=== PATIENT | male | born 1955 | race Caucasian/White ===

== ENCOUNTER → 2018-03-14 17:05 | Outpatient (CLI) | payer OTHER, SELFPAY ==
--- NOTE | 2018-03-14 17:09 | DI.CT.S_ITS ---
PROCEDURE: CT CHEST WO CON INDICATIONS: SOLITARY PULMONARY NODULE TECHNIQUE: Noncontrast 5 mm thick sections acquired from the pulmonary apices to the posterior costophrenic angles. 7 mm thick coronal and sagittal MIP reformats were then acquired. For radiation dose reduction, the following was used: automated exposure control, adjustment of mA and/or kV according to patient size. COMPARISON: [facility], CT, THORAX WITHOUT CONTRAST, 02/07/2016, 18:42. [facility], CT, THORAX WITHOUT CONTRAST, 01/05/2015, 11:11. FINDINGS: Image quality: Excellent. Lungs and pleura: A 3 mm subpleural nodule is again seen within the left upper lobe, as on series 2 image 95. On series 3 images 83, there is a 3 mm subpleural nodule seen within the right lower lobe laterally. These nodules are stable compared to the prior CT examinations. No new pulmonary nodules are seen. No pneumothorax or pleural effusions are seen. The central airways are patent. Mediastinum: Heart size is normal. Coronary artery calcifications are seen. No pericardial effusion. No mediastinal adenopathy by size criteria. Thoracic aorta and central pulmonary arteries are normal in size. Esophagus is normal in caliber. No hiatal hernia. Bones and chest wall: Postoperative change of the left humeral head is seen. No suspicious bony lesions. No vertebral body compression fractures. No axillary or supraclavicular adenopathy by size criteria. Thyroid gland demonstrates no significant noncontrast abnormality. Abdomen: Visualized upper abdominal solid organs and bowel loops appear normal in the absence of contrast. IMPRESSION: Stable 3 mm pulmonary nodules. Given the stability compared to 2014, these are regarded to be benign. No further imaging workup is recommended. Incidental note is made of: Coronary artery calcification Dictated by: Pillo Noel M.D. on 03/14/2018 at 16:31 Approved by: Pillo Noel M.D. on 03/14/2018 at 16:36
== END ==
PROVIDERS: Family Provider Physician Assistant; PCP Physician Assistant; Visit Provider Physician Assistant
DX: R91.8 Other nonspecific abnormal finding of lung field (principal); I25.10 Atherosclerotic heart disease of native coronary artery without angina pectoris
CPT/HCPCS: 71250

== ENCOUNTER → 2018-04-15 09:09 | Outpatient (CLI) | payer OTHER, SELFPAY ==
[2018-04-15 10:37] LABS: Alanine Aminotransferase 48 IU/L (21-72); Albumin 4.1 g/dL (3.5-5.0); Albumin Globulin Ratio 1.4 (1.0-2.8); Alkaline Phosphatase 82 U/L (38-126); Aspartate Aminotransferase 27 IU/L (17-59); BUN Creatinine Ratio 17.3 (6-22); Bilirubin Total 0.9 mg/dL (0.2-1.3); Blood Urea Nitrogen 19 mg/dL (9-20); Calcium 9.4 mg/dL (8.4-10.2); Carbon Dioxide 32 mmol/L (22-32); Chloride 100 mmol/L (98-107); Cholesterol 133 mg/dL (140-199); Estimated Glomerular Filt Rate > 60.0 mL/min (>60); Globulin 2.9 g/dL (1.7-4.1); Glucose 92 mg/dL (80-110); HDL Cholesterol 40 mg/dL (40-60); HEMOLYSIS < 15 (0-50); LDL Cholesterol Calculated 61 mg/dL (<100); Potassium 4.8 mmol/L (3.4-5.1); Sodium 140 mmol/L (137-145); Triglycerides 160 mg/dL (35-150)
[2018-04-15 11:02] LABS: Prostate Specific Antigen Scrn 0.775 ng/mL (0.1-4.0)
[2018-04-15 11:11] LABS: Creatinine Urine Random 130.2 mg/dL
[2018-04-15 11:42] LABS: Microalbumi Creatinin Ratio Ur 4.6 ug/mg CR (<30); Microalbumin Urine Random < 0.6 mg/dL (0-1.6)
== END ==
PROVIDERS: PCP Physician Assistant; Visit Provider Physician Assistant
DX: E78.2 Mixed hyperlipidemia (principal); Z95.5 Presence of coronary angioplasty implant and graft; Z12.5 Encounter for screening for malignant neoplasm of prostate
CPT/HCPCS: 36415; 80053; 80061; 82043; 82570; G0103

== ENCOUNTER → 2018-04-18 15:24 | Outpatient (CLI) | payer OTHER, SELFPAY ==
--- NOTE | 2018-04-18 15:25 | DI.MRI.S_ITS ---
PROCEDURE: MR LUMBAR SPINE WO CON INDICATIONS: Low back pn - persistant groin pn pn w/erection TECHNIQUE: Noncontrast sagittal T1 spin echo and T2 fast echo, sagittal STIR, axial T1 and T2 fast spin echo through the lumbar spine. In cases with scoliosis, additional coronal T2 fast spin echo may be performed. COMPARISON: [facility], CR, L-SPINE 2-3 VIEWS, 11/02/2017, 10:47. [facility], MR, L-SPINE WITHOUT CONTRAST, 06/26/2011, 20:16. FINDINGS: Image quality: Excellent. Alignment and Curvature: 5 lumbar type vertebral bodies are present by plain film. There is normal bony alignment. Bone Marrow: Marrow is of normal overall signal. No acute vertebral body compression fractures. Left hemilaminotomy. Moderate reactive signal within the endplates adjacent to the L5-S1 intervertebral disc, which is increased. T11 and L1 hemangiomata are present, as before. Spinal Cord: Conus medullaris terminates at the mid L2 level. Visualized cord demonstrates normal signal and size. Paraspinous Soft Tissues: No paravertebral masses. L1-L2: Normal appearance. L2-L3: Mild facet hypertrophy. No significant canal, nor foraminal stenosis. No change. L3-L4: Normal appearance. L4-L5: New mild disc desiccation and mild diffuse disc bulge. Increased mild facet hypertrophy bilaterally. Epidural lipomatosis. Increased, dcvh-my-jkldaevy canal stenosis, and increased, mild foraminal stenosis bilaterally. L5-S1: Increased disc height loss and desiccation. Mild diffuse disc bulge. Previously seen superimposed left paracentral protrusion is no longer present. Bilateral facet hypertrophy. No significant canal stenosis. Increased, moderate foraminal stenosis bilaterally. Resolved left S1 nerve impingement. IMPRESSION: 1. Postsurgical sequelae L5-S1, with associated resolution of left S1 nerve impingement. Increased bilateral L5-S1 foraminal stenosis secondary to disc and facet disease. 2. Increased, iihr-bj-anaypbwj canal stenosis, and increased, mild bilateral foraminal stenosis L4-L5 secondary to disc and facet disease. Dictated by: Rhea Baires M.D. on 04/18/2018 at 16:28 Approved by: Rhea Baires M.D. on 04/18/2018 at 16:34
== END ==
PROVIDERS: Family Provider Physician Assistant; PCP Physician Assistant; Visit Provider Physician Assistant
DX: M48.07 Spinal stenosis, lumbosacral region (principal); M48.061 Spinal stenosis, lumbar region without neurogenic claudication; N48.30 Priapism, unspecified; M54.5 Low back pain; R10.30 Lower abdominal pain, unspecified; N50.819 Testicular pain, unspecified
CPT/HCPCS: 72148

== ENCOUNTER → 2018-07-14 16:10 | Outpatient (CLI) | payer OTHER, SELFPAY ==
[2018-07-14 17:57] LABS: Add Manual Diff / Slide Review NO; Basophils Percent Auto 0.8 % (0-2); Eosinophils Percent Auto 6.7 % (2-4); Hematocrit 43.5 % (41-53); Hemoglobin 15.5 g/dL (13.5-17.5); Lymphocytes Percent Auto 22.4 % (25-40); Mean Corpuscular HGB Conc 35.6 % (30-36); Mean Corpuscular Hemoglobin 31.1 PG (26-34); Mean Corpuscular Volume 87.4 fL (80-100); Monocytes Percent Auto 11.4 % (3-14); Neutrophils Absolute Auto 3800 /uL (3000-5900); Neutrophils Percent Auto 58.7 % (50-75); Platelet Count 188 X10^3/uL (150-400); Red Blood Cell Count 4.98 X10^6/uL (4.5-5.9); Red Cell Distribution Width 13.4 % (11.6-14.8); White Blood Cell Count 6.4 X10^3/uL (4.5-11.0)
[2018-07-14 18:08] LABS: INR 1.1 (0.9-1.3); Prothrombin Time 11.9 SECONDS (10.1-12.7)
[2018-07-14 18:11] LABS: PTT Partial Thromboplastin Tim 33 SECONDS (26.4-36.2)
[2018-07-14 18:16] LABS: Blood Urea Nitrogen 16 mg/dL (9-20); Calcium 9.5 mg/dL (8.4-10.2); Carbon Dioxide 28 mmol/L (22-32); Chloride 103 mmol/L (98-107); Estimated Glomerular Filt Rate > 60.0 mL/min (>60); Glucose 81 mg/dL (80-110); HEMOLYSIS < 15 (0-50); Potassium 4.1 mmol/L (3.4-5.1); Sodium 141 mmol/L (137-145)
[2018-07-15 20:14] LABS: Prostate Specific Antigen 0.718 ng/mL (0.10-4.00)
== END ==
PROVIDERS: Family Provider Physician Assistant; PCP Physician Assistant; Visit Provider Orthopaedic Surgery Orthopaedic Surgery of the Spine
DX: R97.20 Elevated prostate specific antigen [PSA] (principal)
CPT/HCPCS: 36415; 80048; 84153; 85025; 85610; 85730; 93005

== ENCOUNTER 2018-08-13 11:36 | Inpatient (IN) | payer OTHER, SELFPAY ==
[2018-07-30 14:03] VITALS: BMI 33.5
[2018-08-13] VITALS (17 sets, daily range): BP systolic 90–142; BP diastolic 48–81; PULSE 75–96; RESP 10–18; TEMP 36.4–36.9; O2SAT 90–98; BMI 32.4
--- NOTE | 2018-08-13 | DI.RAD.S_ITS ---
PROCEDURE: XR LUMBAR SPINE 2-3V INDICATIONS: L5-S1 LAMINECTOMY TECHNIQUE: 2 intraoperative fluoroscopic views of the lumbar spine were acquired. COMPARISON: [facility], , -SPINE 2-3 VIEWS, 11/02/2017, 10:47. FINDINGS: Bones: 2 intraoperative views demonstrate posterior fixation and discectomy at L5-S1. IMPRESSION: Intraoperative fluoroscopic views of posterior fixation and discectomy at L5-S1. Dictated by: Jessica Guajardo M.D. on 08/13/2018 at 16:03 Approved by: Jessica Guajardo M.D. on 08/13/2018 at 16:03
--- NOTE | 2018-08-13 12:28 | PM.PREOP ---
Pre-operative Note Interval Note Pre-op Check: Yes History & Physical Reviewed by Physician, Yes Exam Performed and Yes History & Physical exam performed today by Physician Changes: No
[2018-08-13 12:29] LABS: INR 1.1 (0.9-1.3); Prothrombin Time 12.2 SECONDS (10.1-12.7)
[2018-08-13] MEDS: LACTATED RINGERS 1,000 ML 42 ML IV ×3 (12:29→16:37)
--- NOTE | 2018-08-13 12:53 | SUR.OPER ---
Prone on spine table, head in foam head support, padded chest and pelvic supports, gel pad at knees, lower legs supported by pillows; nipples, genitalia and toes free of pressure, arms secured on foam padded arm boards at <90 degrees abduction. Tape over blanket at thigh secured to table.
[2018-08-13] MEDS: CEFAZOLIN 2 GM/100 ML FROZ.PIGGY IV ×2 (13:17→20:27)
[2018-08-13] MEDS: BUPIVACAINE 0.25% W/ EPI VIAL 30 ML INJ (13:58)
[2018-08-13] MEDS: BUPIVACAINE LIPOSOME 266 MG/20 ML VIAL INJ (13:58)
[2018-08-13] MEDS: ACETAMINOPHEN IV 1,000 MG/100 ML VIAL 400 MG IV (15:00)
--- NOTE | 2018-08-13 15:42 | PM.OP.1 ---
Operative Date/Time/Diagnoses Date of procedure: 08/13/18 Time of procedure: 13:03 Pre-op diagnosis: 1. L4-5, L5-S1 spinal stenosis 2. Post L5-S1 laminectomy with epidural scarring and radiculopathy 3. L4-5, L5-S1 spondylosis with radiculopathy Post-op diagnosis: same Procedure & Clinicians Procedure: 1. L5-S1 Postero-lateral and posterior interbody fusion 2. L5-S1 interbody cage placement. 3. L5-S1 decompressive laminectomy with bilateral facetecomies 4. L5-S1 Posterior non-segmental instrumentation 5. L4-5 hemilaminectomy 6. [place] of bone marrow from iliac crest 7. Utilization of microsurgical technique and operating microscope Same procedure as scheduled: Yes Indications: Patient has been having chronic back pain and worsening lumbar radiculopathy. Patient had previous lumbar decompression without significant improvement in his pain level. Patient has progressively worsening back pain and leg pain. Patient failed multiple conservative management with worsening pain weakness and numbness in her lower extremity. Patient has been having difficulty performing activity of daily living. After discussing risks benefits of treatment options, patient elected proceed with surgery. Surgeon: Lottie Land Radiation Technician: Azalia Delgado Click Yes if Unassisted: No Anesthesia Type: General Operative Notes Closure Type: primary Specimen(s): none sent Implants & Drains: Globus revolve screws, Rise cages Estimated Blood Loss (mL): 50 Blood products transfused: none Procedure in detail: Patient was seen in the preoperative area. Risks and benefits of the surgery was discussed with the patient. Informed consent was obtained from the patient and placed in the chart. Surgical site was marked. Patient was taken to the operative room. General anesthesia was administered. Prophylactic antibiotic was given to the patient less than 30 min before the incision was made. Patient was placed into a prone position on the Chadwick table. Patient's back was then prepped and draped in the sterile fashion. Time-out was performed at this time. Using AP and lateral C-arm imaging the interval between L4-5 L5-S1 was identified and marked on patient's back. A 2 inch incision 2 in from midline was made on the right side first. The fascia was incised in line with skin incision. Globus MARS retractors was placed inside the incision and docked onto the L5 lamina. Using microsurgical technique and operating microscope, a L5 laminectomy and L5-S1 facetectomy was performed using a Kerrison rongeur. The disc space at L5-S1 was identified. And a total diskectomy was performed at L5-S1 level. The endplates were decorticated using a rasp and shaver. The total diskectomy and decortication was performed at L5-S1 level in order to to accomplish a L5-S1 fusion. The local bone from the laminectomy and facetectomy was saved for local bone grafting. After the total diskectomy and decortication was completed, Globus viacell bone graft material was combined with local bone that was harvested earlier. At this time, a separate skin is incision was made over the iliac crest. A Jamshidi needle was inserted into the iliac crest through a separate skin incision. 5 cc of bone marrow aspiration was obtained through the separate skin incision using a Jamshidi needle from the iliac crest. The bone marrow aspiration was combined with local bone and the via cell bone grafting material. The bone grafting material was placed into the L5-S1 interbody space along with a expandable cage. The cage was expanded to its maximum height using the torque limiting screwdriver. At this time the MARS retractor was redirected over the L4 lamina. Using microsurgical technique and operating microscope, a L4-5 heminectomy was performed using the Kerrison rongeur. The ligamentum flavum was also resected at the side of the hemilaminectomy for further decompression of the epidural space. At this time a mirror image incision was made on the left side. The fascia was incised in line with the skin incision. Globus MARS retractor was inserted and docked onto the L5-S1 posterolateral gutter. Using the power drill, posterior-lateral decortication was performed at L5-S1 level until bleeding cortical bone was identified. The remaining bone grafting material was placed into the L5-S1 posterior lateral gutter he order to accomplish posterolateral fusion at the L5-S1 level. Using the double C-arm technique, pedicle screws were placed into the L5 and S1 pedicles bilaterally. This was done by placing the Jamshidi needle into the pedicles, then placing the guidewires over the Jamshidi needle, and finally placing the cannulated screws over the guidewires bilaterally. After the pedicle screws were placed, 2 titanium rods was locked into the heads of the pedicle screws using locking caps and torque limiting screwdriver. After all the hardware was placed, and confirmed with AP and lateral C-arm imaging, the wound was then irrigated with sterile normal saline and packed with Ray-Perla gauze for 3 min to accomplish hemostasis. After the gauze was removed the deep fascia was closed with #1 Vicryl suture. The subcutaneous layer was closed with 2-0 Vicryl. The skin was closed with skin cristina. Patient tolerated the procedure well. There were no complications.
--- NOTE | 2018-08-13 15:48 | P.OP_ITS ---
Operative Date/Time/Diagnoses Date of procedure: 08/13/18 Time of procedure: 13:03 Pre-op diagnosis: 1. L4-5, L5-S1 spinal stenosis 2. Post L5-S1 laminectomy with epidural scarring and radiculopathy 3. L4-5, L5-S1 spondylosis with radiculopathy Post-op diagnosis: same Procedure & Clinicians Procedure: 1. L5-S1 Postero-lateral and posterior interbody fusion 2. L5-S1 interbody cage placement. 3. L5-S1 decompressive laminectomy with bilateral facetecomies 4. L5-S1 Posterior non-segmental instrumentation 5. L4-5 hemilaminectomy 6. [place] of bone marrow from iliac crest 7. Utilization of microsurgical technique and operating microscope Same procedure as scheduled: Yes Indications: Patient has been having chronic back pain and worsening lumbar radiculopathy. Patient had previous lumbar decompression without significant improvement in his pain level. Patient has progressively worsening back pain and leg pain. Patient failed multiple conservative management with worsening pain weakness and numbness in her lower extremity. Patient has been having difficulty performing activity of daily living. After discussing risks benefits of treatment options, patient elected proceed with surgery. Surgeon: Lottie Land Production Inspector: Azalia Delgado Click Yes if Unassisted: No Anesthesia Type: General Operative Notes Closure Type: primary Specimen(s): none sent Implants & Drains: Globus revolve screws, Rise cages Estimated Blood Loss (mL): 50 Blood products transfused: none Procedure in detail: Patient was seen in the preoperative area. Risks and benefits of the surgery was discussed with the patient. Informed consent was obtained from the patient and placed in the chart. Surgical site was marked. Patient was taken to the operative room. General anesthesia was administered. Prophylactic antibiotic was given to the patient less than 30 min before the incision was made. Patient was placed into a prone position on the Chadwick table. Patient's back was then prepped and draped in the sterile fashion. Time- out was performed at this time. Using AP and lateral C-arm imaging the interval between L4-5 L5-S1 was identified and marked on patient's back. A 2 inch incision 2 in from midline was made on the right side first. The fascia was incised in line with skin incision. Globus MARS retractors was placed inside the incision and docked onto the L5 lamina. Using microsurgical technique and operating microscope, a L5 laminectomy and L5-S1 facetectomy was performed using a Kerrison rongeur. The disc space at L5-S1 was identified. And a total diskectomy was performed at L5- S1 level. The endplates were decorticated using a rasp and shaver. The total diskectomy and decortication was performed at L5-S1 level in order to to accomplish a L5-S1 fusion. The local bone from the laminectomy and facetectomy was saved for local bone grafting. After the total diskectomy and decortication was completed, Globus viacell bone graft material was combined with local bone that was harvested earlier. At this time, a separate skin is incision was made over the iliac crest. A Jamshidi needle was inserted into the iliac crest through a separate skin incision. 5 cc of bone marrow aspiration was obtained through the separate skin incision using a Jamshidi needle from the iliac crest. The bone marrow aspiration was combined with local bone and the via cell bone grafting material. The bone grafting material was placed into the L5-S1 interbody space along with a expandable cage. The cage was expanded to its maximum height using the torque limiting screwdriver. At this time the MARS retractor was redirected over the L4 lamina. Using microsurgical technique and operating microscope, a L4-5 heminectomy was performed using the Kerrison rongeur. The ligamentum flavum was also resected at the side of the hemilaminectomy for further decompression of the epidural space. At this time a mirror image incision was made on the left side. The fascia was incised in line with the skin incision. Globus MARS retractor was inserted and docked onto the L5-S1 posterolateral gutter. Using the power drill, posterior- lateral decortication was performed at L5-S1 level until bleeding cortical bone was identified. The remaining bone grafting material was placed into the L5-S1 posterior lateral gutter he order to accomplish posterolateral fusion at the L5- S1 level. Using the double C-arm technique, pedicle screws were placed into the L5 and S1 pedicles bilaterally. This was done by placing the Jamshidi needle into the pedicles, then placing the guidewires over the Jamshidi needle, and finally placing the cannulated screws over the guidewires bilaterally. After the pedicle screws were placed, 2 titanium rods was locked into the heads of the pedicle screws using locking caps and torque limiting screwdriver. After all the hardware was placed, and confirmed with AP and lateral C-arm imaging, the wound was then irrigated with sterile normal saline and packed with Ray-Perla gauze for 3 min to accomplish hemostasis. After the gauze was removed the deep fascia was closed with #1 Vicryl suture. The subcutaneous layer was closed with 2-0 Vicryl. The skin was closed with skin cristina. Patient tolerated the procedure well. There were no complications.
[2018-08-13] MEDS: HYDROMORPHONE 2 MG INJ 0.5 MG IV ×4 (16:16→16:40)
--- NOTE | 2018-08-13 16:26 | SUR.PHASEI ---
BEDSIDE REPORT GIVEN TO SAMIR BOYCE. PT IN STABLE CONDITION, VSS. TRANSFERED CARE OF PT TO CARLI DAWSON AT THIS TIME.
[2018-08-13] MEDS: LORazepam 2 MG/ML SYRINGE 0.25 MG IV ×2 (16:30→16:35)
[2018-08-13] MEDS: hydrOXYzine pamoate 25 MG CAPSULE PO ×2 (17:44→23:52)
--- NOTE | 2018-08-13 18:25 | PC.NURSE ---
Patient up to floor at 1700. A&OX4 but intermittently sleepy during initial assessment. CMS intact, pulses palpable and equal, patient denies tingling or numbness. SCD's are on. 98% on 2L NC. Patient sitting up in bed and ate a little dinner, drank water without difficulty. Rates pain 8/10 gave vistoril for pain and itchiness. Lung sounds clear, heart rate regular, bowel tones hypoactive. Dressing c/d/i, no drainage. Significant other at bedside. Patient oriented to room and call light, but may need reinforcement as he continues to wake up from anesthesia. Patient stood at bedside 2PA with walker/gb and voided 200. Will continue to reassess.
[2018-08-13] MEDS: OXYCODONE IR 5 MG TABLET 10 MG PO ×2 (20:15→23:33)
[2018-08-13] MEDS: SODIUM CHLORIDE 0.9% FLUSH 10 ML IV (20:16)
[2018-08-13] MEDS: ATORVASTATIN 20 MG TABLET 80 MG PO (20:16)
[2018-08-13] MEDS: SODIUM CHLORIDE 0.9% 250 ML 21 ML IV (20:27)
[2018-08-14] VITALS (11 sets, daily range): BP systolic 106–134; BP diastolic 56–76; PULSE 82–107; RESP 15–19; TEMP 36.2–37.3; O2SAT 92–98
--- NOTE | 2018-08-14 00:09 | PC.NURSE ---
Addendum entered by Karlie Anthony R.N. 08/14/18 06:04: [id number] Patient complaining of 7/10 back pain so medicated initially with Vistaril and then assisted to reposition onto right side with ice pack to back. Seemed very uncomfortable and not able to have Oxycodone for another hour so patient agreeable to taking IV Dilaudid (concerned about constipation). Currently states pain is 2/10 and declines offer of Oxycodone at this time. Tried on RA as was irritated by nasal canula and sats have been maintaining at 94%. Original Note: Patient is alert and oriented. Breath sounds CTA with O2 sat of 98% on oxygen at 2L/min per NC; per evening RN patient desats on RA. HRR. Denies nausea. BT hypoactive and denies flatus. Voiding per urinal; denies dysuria but has chronic urgency and occasionally dribbles/incontinent. Dressing to back is CDI except for graft site dressing which has sanguinous drainage noted. At shift change stated pain was 10/10 with movement and was medicated with Oxycodone and now pain is 4/10 but states he is very uncomfortable; provided ice pack and medicated with Vistaril. CMS is intact. Can turn but wanting to lie only on right side for comfort. Agreeable to having footie SCD's applied as doesn't think he will remember to ankle wave during night. Fall risk score is high and bed alarm is activated.
[2018-08-14] MEDS: OXYCODONE IR 5 MG TABLET 10 MG PO ×5 (02:34→21:09)
[2018-08-14] MEDS: SODIUM CHLORIDE 0.9% FLUSH 10 ML IV ×3 (03:57→20:18)
[2018-08-14] MEDS: CEFAZOLIN 2 GM/100 ML FROZ.PIGGY IV (03:57)
[2018-08-14] MEDS: METOPROLOL ER 25 MG TABLET PO ×2 (04:02→20:12)
[2018-08-14] MEDS: hydrOXYzine pamoate 25 MG CAPSULE PO ×5 (04:16→20:11)
[2018-08-14] MEDS: HYDROMORPHONE 0.5 MG INJ IV (04:23)
--- NOTE | 2018-08-14 07:25 | P.PN_ITS ---
Subjective Date Patient Seen: 08/14/18 Time Patient Seen: 07:30 Interval history: POD #1 status post L4-5 Left Hemilaminectomy, L5-S1 TLIF w/ Posterior Instrumentation with Dr. Land on 08/13/18. Patient lying in bed comfortably with no signs of distress. Patient reports that his pain is manageable at this time with 10mg oxycodone and 25mg Vistaril. Patient has not started PT. Patient denies SOB, chest pain, fever, chills, nausea or vomiting. Exam Vital Signs (past 8 hours): - 08/13/18 23:30 08/14/18 00:05 08/14/18 04:02 Temperature 97.7 F Pulse Rate 96 H 107 H Respiratory Rate 18 Blood Pressure 122/71 131/71 Pulse Oximetry 96 98 08/14/18 04:10 08/14/18 06:03 Temperature 97.5 F L Pulse Rate 97 H Respiratory Rate 19 Blood Pressure 131/71 Pulse Oximetry 96 94 Oxygen Delivery Method Room Air Oxygen Flow Rate 0 Narrative Exam Narrative: Patient seen bedside. Patient is AOx3. Patient is lying in bed comfortably in no acute distress. Radial and dorsalis pedis pulses 2+ and symmetric. DVT compression devices noted on LE bilaterally. 5/5 muscle strength in dorsiflexion, plantarflexion and heavy threader bilaterally. Sensation to light touch intact in LE bilaterally. Lumbar dressing CDI. Calfs are soft, non tender and compressible bilaterally. Objective Labs Labs: Laboratory Results - last 24 hr 08/13/18 12:10 PT 12.2 INR 1.1 Assessment & Plan Post-op Postoperative Procedures Operation Date: 08/13/18 13:45 Actual Procedures Side Surgeon p L4-5 Left Hemilaminectomy, L5-S1 TLIF w/Posterior Instrumentation Not Applicable Lottie Land MD Postoperative day: 1 Postoperative status: doing well Postoperative plan: routine post-op care Postoperative plan narrative: Start mobilizing, ambulating and sitting in chair with PT. Continue pain management. Likely to be discharged home in 1-2 days once cleared by PT. Time Spent With Patient less than 15 minutes Quality VTE Deep Vein Thrombosis/Pulmonary Embolism Present on Admission: No
--- NOTE | 2018-08-14 10:40 | PT.IIE ---
Current Diagnoses Obstructive sleep apnea (adult) (pediatric) (08/13/18) Surgery Performed Operation Date: 08/13/18 13:45 Actual Procedures p L4-5 Left Hemilaminectomy, L5-S1 TLIF w/Posterior Instrumentation(Not Applicable) - Lottie Land MD Surgical History (Last Updated 07/30/18 @ 14:36 by Mary Lou Rutherford, RN) H/O hernia repair (Acute ~04/05/16) H/O right coronary artery stent placement (Acute) S/P rotator cuff repair (Acute ~07/13/15) Hx of shoulder surgery (Resolved ~07/2015) History of third molar tooth extraction History of tonsillectomy (~1962) Status post hernia repair Status post transurethral resection of prostate Medical History (Last Updated 07/30/18 @ 15:18 by Mary Lou Rutherford, RN) Abnormal barium swallow (Acute ~07/29/18) Dizziness (Acute) Fatigue (Acute) Hyperlipidemia (Acute) Lower urinary tract symptoms (LUTS) (Acute) Lumbar post-laminectomy syndrome (Acute) Obese (Acute) Osteoarthritis of spine with radiculopathy, lumbar region (Acute) Prostatitis (Acute) Sciatica of left side (Acute) Sensation of lump in throat (Acute) Shortness of breath (Acute) Slowing, urinary stream (Acute) Spinal stenosis of lumbar region at multiple levels (Acute) Urethral stricture (Acute ~2012) [place] [employer] (Acute) BPH (benign prostatic hyperplasia) (Chronic) Coronary artery disease (Chronic) Elevated prostate specific antigen (PSA) (Chronic 05/18/14) Erectile dysfunction (Chronic) Gastroesophageal reflux disease (Chronic) Hx of asbestos exposure (Chronic) Hypertension (Chronic) Mixed hyperlipidemia (Chronic 01/03/15) Obstructive sleep apnea syndrome (Chronic) PTSD (post-traumatic stress disorder) (Chronic) Atrial fibrillation (Resolved 01/03/15) Chickenpox (Resolved) Measles (Resolved) Mumps (Resolved) STEMI (ST elevation myocardial infarction) (Resolved 06/2016) Status post insertion of drug-eluting stent into right coronary artery for coronary artery disease (Resolved) Physical Therapy Inpatient Evaluation/Re-Eval M1 PT/OT-IP Prior Functional Status Start: 08/14/18 13:06 Freq: NEEDED Status: Active Protocol: Document 08/14/18 10:40 AB (Rec: 08/14/18 13:30 AB [id number]) Medical Review Prior Functional Status Medical History Reviewed Yes Communication able to make needs known Mobility and Gait pt stated that he is independent with all mobilities and ambulation without AD Social History Household Members none Living Arrangements Apartment/Condo Number of Floors (Floors) 3 or More Floors Number of Stairs To Enter/Railing? 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 M2 PT-IP Current Condition Start: 08/14/18 13:06 Freq: NEEDED Status: Active Protocol: Document 08/14/18 10:40 AB (Rec: 08/14/18 13:30 AB [id number]) Physical Therapy Current Condition Current Condition Evaluation Date 08/14/18 Treatment Diagnosis s/p L5S1 fusion/lami; L4-5 hemilami; difficulties in walking Onset Date 08/13/18 Precautions Lumbar Precautions Log Roll No Twisting Limit Bending Lifting Restriction of 10 lbs Gait Belt above Incisional Area M3 PT-IP Subjective Start: 08/14/18 13:06 Freq: NEEDED Status: Active Protocol: Document 08/14/18 10:40 AB (Rec: 08/14/18 13:30 AB [id number]) Subjective Physical Therapy Visit Type Type Initial Evaluation Visit Start Time 10:40 Visit Stop Time 11:25 Total Visit Minutes 45 Number of HEART SURGEON Visits 0 Physical Therapy Visit Comments Patient Comments pt agreeable to get up Therapy Pain Assessment Pain When Pain Assessed At Rest Pain Present Pain Present Pain Reported Location Lower Back Intensity 8 Scale Used increase with mobility to 9/10 Description Spasm Pain Management Techniques Apply Cold Re-positioning Timing of Activity with Medications M4 PT-IP Mobility and Gait Start: 08/14/18 13:06 Freq: NEEDED Status: Active Protocol: Document 08/14/18 10:40 AB (Rec: 08/14/18 13:30 AB [id number]) PT-Bed Mobility Assessment Rolling Type of Rolling Log Rolling Level of Assist Maximal Assistance 1 Person Assistance Supine to Sit Supine to Sit Maximum Assistance 1 Person Assistance Scooting Scooting to Edge of Bed Maximum Assistance PT-Transfer Assessment Sit to and From Stand Sit to and from Stand Maximum Assistance 1 Person Assistance Use of Upper Extremities Equipment Transfer Assistive Device Gait Belt Front Wheeled Walker Orthotic/Prosthetic Devices or Brace: No Transfers Transfer Destination Chair Transfer Technique Stand Step Pivot Transfer Ability Level of Assist Moderate Assistance 1 Person Assistance Use of Upper Extremities Comments Mobility Comments BP in supine 107/63. pt completed supine to sit max a and cues. pt able to sit on EOB SBA. c/o dizziness. BP 118/72. pt completed sit to stand max a and cues. pt c/o increase pain and nausea. completed transfer to chair using FWW mod A and cues. BP sitting on chair after transfer: 94/58. positioned pt in chair. ice pack provided. call light and table placed within reach. Gait Assessment Comments Gait Comments unable this morning session due to c/o dizziness/nausea with BP decreased to 94/58. nurse aware. PT-Balance Assessment Sitting Balance and Reactions Static Sitting Balance Ability Good Dynamic Sitting Balance Ability Good Standing Balance and Reactions Static Standing Balance Ability Fair Dynamic Standing Balance Ability Poor Device Used FWW M5 PT-IP Objective Assessments Start: 08/14/18 13:06 Freq: NEEDED Status: Active Protocol: Document 08/14/18 10:40 AB (Rec: 08/14/18 13:30 AB [id number]) Orientation Orientation/Cognition Level of Alertness Alert Orientation Name Age Birthday Month Date Year Day of Week Place Situation Safety Awareness Decreased Safety Awareness Gross Range of Motion Lower Extremity ROM Assessment Within Functional Limits Strength Lower Extremity Strength Assessment Bilaterally Impaired Comments Strength Comments LLE: 3+/5 RLE 4-/5 Sensation Assessment Sensation Gross Sensation WNL M6 PT-IP Treatment Start: 08/14/18 13:06 Freq: NEEDED Status: Active Protocol: Document 08/14/18 10:40 AB (Rec: 08/14/18 13:30 AB [id number]) Physical Therapy Treatment Education Education Provided Precautions Weight Bearing Status Post-Op Packet Safety M7 PT-IP Assessment and Plan Start: 08/14/18 13:06 Freq: NEEDED Status: Active Protocol: Document 08/14/18 10:40 AB (Rec: 08/14/18 13:30 AB [id number]) PT Summary Assessment and Plan Potential Rehabilitation Potential Fair Status of Condition at Evaluation Evolving Summary Impairments Pain ROM Strength Balance Cognition Bed Mobility Transfers Gait Activity Tolerance Assessment Summary pt requiring max A with mobility. d/c plan depending on progress. pt lives alone but his girlfriend can check on him. will continue to assess progress. Goals Bed Mobility Goal Standby Assistance Transfer Goal Standby Assistance Front Wheeled Walker Gait Goal Standby Assistance Front Wheel Walker Gait Distance 150 Other Goals up/down 30 steps with L rail ascending SBA Days to Meet Goals 5 Frequency of Treatment Frequency Of Treatment Twice a Day Treatment Plan Physical Therapy Treatment Plan Bed Mobility Training Transfer Training Gait Training Therapeutic Exercise Balance Retraining Post Op Education Discharge Planning Hot or Cold Pack Neuromuscular Re-ed Coordination Retraining Manual Therapy Other Recommendations and Next Treatment ambulation Focus Recommendations To Nursing Amount of Assist Needed 1 Person Assist Discharge Recommendations PT Discharge Recommendations Home with Assistance Home Health Equipment Needed for Home Before FWW Discharge
--- NOTE | 2018-08-14 13:06 | CM.DANOTE ---
Discharge Planning/Care Management Met with patient and notified patient of CM team role. Patient resides alone in a 3rd flood apartment. Patient will have son/Tal transport him home and assist him throughout the day as needed. Patient also has a few friends that are able to look in on him as well. Patient does not anticipate any discharge needs at this time. Patient is pending Pt and OT eval. Patient's goal is to discharge home when medically stable. Discussed HH and patient was not interested at this time. Plan: Likely discharge home when medically stable pending PT/OT eval. SW to follow up with patient to rule out the need for HH and also determine if patient will be safe to travel up three floors of stairs to enter apartment. CM Discharge Assessment Start: 08/14/18 13:04 Freq: Status: Active Protocol: Document 08/14/18 13:04 (Rec: 08/14/18 13:06 [id number]) Discharge Planning Assessment Assigned [employer] Linux Engineer ANABEL Marino Advance Directives? Yes Advance Directives on File No History Provided By Patient Significant Other Medical Record Has Patient been admitted in last 30 No days? Prior Living Arrangements Apartment/Condo Household Members other Type of transporation used prior to Drives own vehicle admit Independent with ADL's Yes Is patient alert and oriented? Yes Referrals Initiated None needed Review Status In Process Please Provide Date Initial DC 08/14/18 Assessment Was Performed Next Review Type Continued Stay Review Pre-Anesthesia Assessment Start: 07/30/18 14:03 Freq: Status: Complete Protocol: Document 07/30/18 14:03 [email or web address] (Rec: 07/30/18 14:36 Terrell [email or web address]) Pre-Anesthesia Assessment Patient Also Known As Alexis (AKA) Patient Information Reviewed Via Chart Review Phone Assessment Assessment Completed With Patient Lab Results BMP/CMP CBC EKG Primary Care Provider Esperanza Roca Seen Specialist in Last 12 Months Yes Specialist Seen Final Touch Up Painter Orthopedist Primary Language [place] Supervisor Cutting Department Required No Height 176.53 cm Weight 104.326 kg Body Mass Index (BMI) 33.5 Hearing Ability Normal Visual Impairment Partially Limited Visual Assist Glasses Dentition Type Teeth, Natural Present Barriers to Learning Visual Comment reading glasses Hx Anesthesia Reactions No Hx Family Anesthesia Reaction No Hx Malignant Hyperthermia No Hx Blood Transfusions No Anesthesia Review Requested No Informix Developer No alcohol intake current alcohol intake frequency a few times a month Smoking Status Former smoker Tobacco type cigarettes how long ago did patient quit smoking 1999 Substance Use Type prescription drug Pain Present Denied Pain Musculoskeletal Symptoms Abnormal Gait Back Pain Difficulty Walking Muscle Cramps Muscle Spasms Muscle Weakness Radiating Pain into Limb History of Falling (Recent or History of Yes ) Patient is completely paralyzed or No completely immobile Ambulatory Aid None/bed rest/nurse assist Gait/Transferring Impaired Mental Status Oriented to own ability Does patient have HOOD/SOB Yes Hx Sleep Apnea Yes: Oral device/irreg use Comment will bring Currently Taking a Beta Adilene Yes: Metoprolol Can You Climb a Flight of Stairs Without No SOB Hx Chest Pain Yes: None since [place] Hx Syncope or Dizziness Yes: Occas dizziness/quick movement Anti-Coagulant Therapy Yes: Plavix Has a Final Touch Up Painter Yes: [place] 10/24; Pt. states he will check w/dr for clearance Hx Pacemaker/ICD No Comment Increased activity/yoga, bicycle 2x/week Diet Type At Home Regular dysphagia Yes Comment Chicken, rice, vegetables Genitourinary Symptoms Hematuria Bladder Pattern Frequency Nocturia Urgency Urinary Catheter Present No Hx Urinary Self Catheterization No Diabetes No Hx Drug Resistant Organism No Presence of External or Internal Medical Yes: cardiac stent Devices Have you traveled outside the [facility] in the last 30 days? Marital Status Lives With other Prior Living Arrangements Apartment/Condo Number of Stairs To Enter/Railing? Stairs to third floor apartment/handrail Support System Child/Children Does the Patient Have Assistance After Intermittant Surgery Patient Discharge Plan Description Return Home Comment Has intermittent help available, plans to home alone Feels Safe in Current Environment Yes Been Physically Hurt or Threatened By a No Person in Current Environment Do you have thoughts of harming yourself None or others? Are you currently considering suicide? No Do you have a plan to hurt yourself or No Plan others? Do You Have Any Spiritual Beliefs That No May Affect Your HC Choices? Do You Have Any Cultural Practices That No May Affect Your HC Choices? Spiritual Referral None Comment Anabaptist Who Can We Speak to About Patient's Care Family & Friends Identifying Code for Release of Patient Declined Information Health Care Proxy/Next of Kin Kathleen Maciel - daughter Emergency Contact Name Same Emergency Contact Phone Number same Advance Directives? Yes Advance Directives on File No Requested Patient Bring Advanced Yes Directives DOS Power of Pediatric Associate No PAC Instructions Assistance for 24 hours post- op Do not shave/clip surgical site Durable medical equipment Medications to take/avoid Nasal antibiotic No ETOH/petroleum product on skin DOS NPO Ortho class Post-op transportation Pre-op antibiotic Pre-surgical wash Sensory aids Sturdy shoes/comfortable clothes Do not bring valuables and remove jewelry
--- NOTE | 2018-08-14 13:20 | OT.IP.EVAL ---
Current Diagnoses Obstructive sleep apnea (adult) (pediatric) (08/13/18) Surgery Performed Operation Date: 08/13/18 13:45 Actual Procedures p L4-5 Left Hemilaminectomy, L5-S1 TLIF w/Posterior Instrumentation(Not Applicable) - Lottie Land MD Past Medical History (Last Updated 07/30/18 @ 15:18 by Mary Lou Rutherford, RN) Abnormal barium swallow (Acute ~07/29/18) Dizziness (Acute) Fatigue (Acute) Hyperlipidemia (Acute) Lower urinary tract symptoms (LUTS) (Acute) Lumbar post-laminectomy syndrome (Acute) Obese (Acute) Osteoarthritis of spine with radiculopathy, lumbar region (Acute) Prostatitis (Acute) Sciatica of left side (Acute) Sensation of lump in throat (Acute) Shortness of breath (Acute) Slowing, urinary stream (Acute) Spinal stenosis of lumbar region at multiple levels (Acute) Urethral stricture (Acute ~2012) of armed ConsiderC (Acute) BPH (benign prostatic hyperplasia) (Chronic) Coronary artery disease (Chronic) Elevated prostate specific antigen (PSA) (Chronic 05/18/14) Erectile dysfunction (Chronic) Gastroesophageal reflux disease (Chronic) Hx of asbestos exposure (Chronic) Hypertension (Chronic) Mixed hyperlipidemia (Chronic 01/03/15) Obstructive sleep apnea syndrome (Chronic) PTSD (post-traumatic stress disorder) (Chronic) Atrial fibrillation (Resolved 01/03/15) Chickenpox (Resolved) Measles (Resolved) Mumps (Resolved) STEMI (ST elevation myocardial infarction) (Resolved 06/2016) Status post insertion of drug-eluting stent into right coronary artery for coronary artery disease (Resolved) Surgical History (Last Updated 07/30/18 @ 14:36 by Mary Lou Rutherford RN) H/O hernia repair (Acute ~04/05/16) H/O right coronary artery stent placement (Acute) S/P rotator cuff repair (Acute ~07/13/15) Hx of shoulder surgery (Resolved ~07/2015) History of third molar tooth extraction History of tonsillectomy (~1962) Status post hernia repair Status post transurethral resection of prostate Occupational Therapy Inpatient Evaluation/Re-Eval M1 PT/OT-IP Prior Functional Status Start: 08/14/18 13:06 Freq: NEEDED Status: Active Protocol: Document 08/14/18 13:20 PJM (Rec: 08/14/18 15:27 [facility] [id number]) Medical Review Prior Functional Status Medical History Reviewed Yes Diet/Fluid Consistency Regular Communication WNL Mobility and Gait pt stated that he is independent with all mobilities and ambulation without AD Activities of Daily Living and IADL's Pt states he is independent with all self care, IADLS, driving. 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 Social History Household Members other Living Arrangements Apartment/Condo Number of Floors (Floors) One Floor Number of Stairs To Enter/Railing? 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 She works principal process engineer and does not live with pt. M2 OT-IP Current Condition Start: 08/14/18 15:10 Freq: Status: Active Protocol: Document 08/14/18 13:20 XUAN (Rec: 08/14/18 15:27 [facility] [id number]) Occupational Therapy Current Condition Current Condition Evaluation Date 08/14/18 Treatment Diagnosis decreased self care, functional mobility s/p L4-5 lami, L5-S1 fusion Diagnosis Onset Date 08/13/18 Post Operative Precautions Lumbar Precautions Log Roll No Twisting Limit Bending Lifting Restriction of 10 lbs Gait Belt above Incisional Area M3 OT- IP Subjective and Pain Start: 08/14/18 15:10 Freq: Status: Active Protocol: Document 08/14/18 13:20 XUAN (Rec: 08/14/18 15:27 [facility] [id number]) OT- Subjective Occupational Therapy Visit Type Type Initial Evaluation Visit Start Time 12:55 Visit Stop Time 13:20 Total Visit Minutes 25 Notes pt drowsy this session Occupational Therapy Visit Comments Patient Comments Can I get back in bed. I have been sitting here too long. Patient/Caregiver Goals to get back to work [employer] due to limited sick time OT Pain Assessment Pain When Pain Assessed After Treatment Pain Present Pain Present Pain Reported Location Lower Back Intensity 6 Scale Used Numeric (1 - 10) Description Aching Acute Pain Behaviors Facial Grimacing Guarding Management Techniques Distraction Re-positioning Timing of Activity with Medications M4 OT- IP ADL's Start: 08/14/18 15:10 Freq: Status: Active Protocol: Document 08/14/18 13:20 PJM (Rec: 08/14/18 15:27 [facility] [id number]) OT [id number] General Evaluation Self-Feeding Ability Independent Comments OT Self-Feeding Comments decreased appetite; pt fell asleep mid meal OT ADL-Grooming General Evaluation Grooming Ability Standby Assistance Areas Needing Assistance Retrieving/Set-up of Grooming Items Face Washing Comments OT Grooming Comments seated in chair OT ADL-Oral Care Comments Oral Care Comments pt declined this session OT ADL-Dressing General Eval Lower Body Dressing Ability Maximum Assistance Comments OT Dressing Comments Pt will need adaptive equipt for lower body dressing as he lives alone. OT ADL-Toileting General Evaluation Toileting Ability Standby Assistance Devices Toileting Assistive Devices Urinal Comments OT Toileting Comments independent using urinal seated once within reach OT ADL-Bathing Comments OT Bathing Comments to be assessed as activity tolerance improves, pt plans to stand to shower at home M5 OT- IP IADL's Start: 08/14/18 15:10 Freq: Status: Active Protocol: Document 08/14/18 13:20 PJ (Rec: 08/14/18 15:27 [facility] [id number]) OT-Instrumental Activities of Daily Living Deficits IADL Deficits Identified Deficits Home Safety Awareness Awareness of Need for Assistance at Home Good Awareness Ability to Problem Solve Emergency Able to Problem Solve Situations Medication Management Medication Management No Deficits Identified Meal Preparation Meal Preparation No Deficits Identified Meal Preparation Comments pt states girlfriend will provide intermittent assist and will do grocery shopping as needed Retention Representative Retention Representative Caregiver Provides Assist Retention Representative Comments pt states girlfriend will provide intermittent assist as needed Driving Driving Caregiver Provides Assist Driving Comments friends to assist until pt able M6 OT- IP Functional Cognition Start: 08/14/18 15:10 Freq: Status: Active Protocol: Document 08/14/18 13:20 PJM (Rec: 08/14/18 15:27 [facility] [id number]) Cognitive Factors Limiting Selfcare Function Cognitive Ability Level of Alertness Drowsy Patient Orientation Name Age Birthday Month Date Year Day of Week Place Situation Attention Span Ability Capable of Focused Attention Ability to Follow Commands Able to Follow One Step Commands Safety Awareness Decreased Ability to Apply Precautions Underestimates Need for Assistance Cognitive Comments Cognitive Assessment Comments Pt drowsy from pain meds and feels sleep deprived. Will need further education re: adapted ADLS when more alert. OT- Vision and Hearing OT- Hearing Assessment OT- Hearing Assessment WFL OT- Vision Assessment Visual Acuity WFL Vision Assessment Comments Pt denies any recent changes. M7 OT- IP Mobility and Balance Start: 08/14/18 15:10 Freq: Status: Active Protocol: Document 08/14/18 13:20 PJ (Rec: 08/14/18 15:27 [facility] [id number]) OT- Bed Mobility Assessment Rolling Type of Rolling Log Rolling Roll to Right Level of Assistance Minimal Assistance 1 Person Assistance Supine to Sit Supine to Sit Assist 1 Person Assistance Sit to Supine Sit to Supine Assist Minimal Assistance 1 Person Assistance Scooting Scooting to Edge of Bed Standby Assistance Scooting Up and Down in Bed Standby Assistance OT-Transfer Assessment Sit to and From Stand Sit to and from Stand Contact Guard Assistance Transfers Transfer Ability Contact Guard Assistance Technique Transfer Destination Bed Transfer Technique Stand Step Pivot Devices Transfer Assistive Devices Gait Belt Front Wheeled Walker Comments Mobility Comments Pt needs mod verbal cues for technique and to avoid twisting. OT- Gait Assessment Comments Gait Ability Comments did not occur, see P.T. notes OT- Balance Assessment Sitting Balance and Reactions Static Sitting Balance Ability Good Dynamic Sitting Balance Ability Good Standing Balance and Reactions Static Standing Balance Ability Good Dynamic Standing Balance Ability Fair M8 OT- IP Objective Assessments Start: 08/14/18 15:10 Freq: Status: Active Protocol: Document 08/14/18 13:20 PJ (Rec: 08/14/18 15:27 [facility] [id number]) OT Gross Range of Motion Upper Extremity Range of Motion Assessment Within Functional Limits OT Strength Upper Extremity Strength Assessment Within Functional Limits Hand Senior Support Analyst Strength Hand Dominance Right OT- Coordination Assessment Comments Coordination Comments BUE WNL OT-Muscle Tone Assessment Muscle Tone WNL Yes OT Sensation Assessment Comments Summary Comments BUE WNL per pt report Edema Edema Absent M9 OT- IP Assessment and Plan Start: 08/14/18 15:10 Freq: Status: Active Protocol: Document 08/14/18 13:20 PJM (Rec: 08/14/18 15:27 [facility] [id number]) OT Summary Assessment and Plan Potential Rehabilitation Potential Good Analytic Complexity at Evaluation Low Summary OT Impairments Pain Balance Functional Mobility Grooming Dressing Toileting Bathing Toilet Transfers Shower Transfers Assessment Summary Low complexity OT assessment completed with emphasis on self care skills within new lumbar spine precautions. Began education re: adapted ADL techniques and equipt options as limited by pt drowsiness this session. Pt currently has performance deficits in all functional mobility/transfers, standing self care tasks, lower body dressing, bathing and toileting. Pt will benefit from 1-2 additional OT tx's to address goals below. Anticipate pt will be able to d/c home with intermittent assist from girlfriend. Goals Grooming Goal Independent Dressing Goal Independent Long Handled Shoe Horn Supervisor Picking Crew Sock Aid Toileting Goal Independent Bathing Goal Independent Long Handled Sponge or [place] Toilet Transfer Goal Independent Shower Transfer Goal Independent Patient/Caregiver Education Goal Demonstrate Post-Op Precautions Demonstrate Energy Conservation and Pacing Days to Meet Goals 3 Frequency of Treatment Frequency Of Treatment Once a Day Treatment Plan OT Treatment Plan ADL Training Functional Mobility Patient/Family Education Discharge Planning Discharge Recommendations OT Discharge Recommendations Home with Assistance Home Equipment Needs lower body dressing equipment, long bath sponge
--- NOTE | 2018-08-14 15:06 | PT.IPTN ---
Current Diagnoses Obstructive sleep apnea (adult) (pediatric) (08/13/18) Surgery Performed Operation Date: 08/13/18 13:45 Actual Procedures p L4-5 Left Hemilaminectomy, L5-S1 TLIF w/Posterior Instrumentation(Not Applicable) - Lottie Land MD Physical Therapy Treatment Note M2 PT-IP Current Condition Start: 08/14/18 13:06 Freq: NEEDED Status: Active Protocol: Document 08/14/18 10:40 AB (Rec: 08/14/18 13:30 AB [id number]) Physical Therapy Current Condition Current Condition Evaluation Date 08/14/18 Treatment Diagnosis s/p L5S1 fusion/lami; L4-5 hemilami; difficulties in walking Onset Date 08/13/18 Precautions Lumbar Precautions Log Roll No Twisting Limit Bending Lifting Restriction of 10 lbs Gait Belt above Incisional Area M3 PT-IP Subjective Start: 08/14/18 13:06 Freq: NEEDED Status: Active Protocol: Document 08/14/18 14:55 GGD (Rec: 08/14/18 15:05 GGD [id number]) Subjective Physical Therapy Visit Type Type Treatment Note Visit Start Time 14:30 Visit Stop Time 14:55 Total Visit Minutes 25 Number of RUSTIC FENCE BUILDER Visits 1 Physical Therapy Visit Comments Patient Comments Pt willing to get up. Therapy Pain Assessment Pain When Pain Assessed At Rest Pain Present Pain Present Pain Reported Location Lower Back Intensity 7 Description Sharp Stabbing M4 PT-IP Mobility and Gait Start: 08/14/18 13:06 Freq: NEEDED Status: Active Protocol: Document 08/14/18 14:55 GGD (Rec: 08/14/18 15:05 GGD [id number]) PT-Bed Mobility Assessment Rolling Type of Rolling Log Rolling Roll to Left Level of Assist Minimal Assistance 1 Person Assistance Supine to Sit Supine to Sit Moderate Assistance 1 Person Assistance Bedrails Scooting Scooting to Edge of Bed Contact Guard Assistance PT-Transfer Assessment Sit to and From Stand Sit to and from Stand Maximum Assistance 1 Person Assistance 2 Person Assistance Equipment Transfer Assistive Device Gait Belt Front Wheeled Walker Orthotic/Prosthetic Devices or Brace: No Transfers Transfer Destination Chair Toilet Transfer Ability Level of Assist Minimal Assistance 1 Person Assistance Use of Upper Extremities Gait Assessment Gait Gait Assistance Required: Contact Guard Assist Distance (Feet) 15 Able to Maintain Weight Bearing Status Yes During Gait Assistive Devices Assistive Device Gait Belt Front Wheeled Walker Orthotic/Prosthetic Devices or Brace: No Gait Deviations General Gait Pattern Decreased Stride Length Decreased Feet Clearance Flexed Trunk Factors Limiting Gait Function Factors Limiting Gait Function Decreased Strength Pain M5 PT-IP Objective Assessments Start: 08/14/18 13:06 Freq: NEEDED Status: Active Protocol: Document 08/14/18 10:40 AB (Rec: 08/14/18 13:30 AB [id number]) Orientation Orientation/Cognition Level of Alertness Alert Orientation Name Age Birthday Month Date Year Day of Week Place Situation Safety Awareness Decreased Safety Awareness Gross Range of Motion Lower Extremity ROM Assessment Within Functional Limits Strength Lower Extremity Strength Assessment Bilaterally Impaired Comments Strength Comments LLE: 3+/5 RLE 4-/5 Sensation Assessment Sensation Gross Sensation WNL M6 PT-IP Treatment Start: 08/14/18 13:06 Freq: NEEDED Status: Active Protocol: Document 08/14/18 14:55 GGD (Rec: 08/14/18 15:05 GGD [id number]) Physical Therapy Treatment Education Education Provided Precautions M7 PT-IP Assessment and Plan Start: 08/14/18 13:06 Freq: NEEDED Status: Active Protocol: Document 08/14/18 14:55 GGD (Rec: 08/14/18 15:05 GGD [id number]) PT Summary Assessment and Plan Summary Assessment Summary Pt needed less assist with mobility. He did have increase in pain and c/O spasms with mobility. He had heavy use of UE on FWW with gait. Frequency of Treatment Frequency Of Treatment Twice a Day Treatment Plan Physical Therapy Treatment Plan Bed Mobility Training Transfer Training Gait Training Therapeutic Exercise Balance Retraining Post Op Education Discharge Planning Hot or Cold Pack Neuromuscular Re-ed Coordination Retraining Manual Therapy Other Recommendations and Next Treatment ambulation Focus Recommendations To Nursing Amount of Assist Needed 1 Person Assist Discharge Recommendations PT Discharge Recommendations Home with Assistance
[2018-08-14] MEDS: ATORVASTATIN 20 MG TABLET 80 MG PO (20:12)
[2018-08-15] VITALS (7 sets, daily range): BP systolic 115–134; BP diastolic 61–89; PULSE 87–112; RESP 16–18; TEMP 36.7–37.5; O2SAT 93–97
[2018-08-15] MEDS: hydrOXYzine pamoate 25 MG CAPSULE PO ×4 (00:06→19:09)
[2018-08-15] MEDS: OXYCODONE IR 5 MG TABLET 10 MG PO ×6 (00:06→20:27)
--- NOTE | 2018-08-15 00:30 | PC.NURSE ---
Addendum entered by Karlie Anthony R.N. 08/15/18 04:07: Complaining of 6/10 pain in back and left leg and 8/10 pain in right leg; medicated with Oxycodone + Vistaril. Original Note: Addendum entered by Karlie Anthony R.N. 08/15/18 01:31: Complains of increasing pain in back, right hip and down both legs. Assisted to reposition, changed ice pack applied some pressure massage to legs/hip and then medicated with Dilaudid as well. Original Note: Patient is alert and oriented. Asleep at start of shift; snoring but now awake and states pain is 6/10 in back and posterior legs so medicated with Oxycodone + Vistaril and ice pack applied after assisted to reposition. Breath sounds CTA with RA sat of 93%. HRR but slightly tachy at 103 bpm. Denies nausea. BT hypoactive and denies flatus as yet; abdomen appears distended from last night. Voiding per urinal and denies problems. Able to turn in bed but receives assistance prn. Dressing to back intact with no new drainage noted. CMS intact; earlier left foot numbness has resolved. Agreeable to having SCD's placed for the night; footies applied. Fall risk score is high and bed alarm is activated.
[2018-08-15] MEDS: HYDROMORPHONE 0.5 MG INJ IV (01:25)
[2018-08-15] MEDS: SODIUM CHLORIDE 0.9% FLUSH 10 ML IV ×3 (01:26→20:26)
[2018-08-15] MEDS: LISINOPRIL 5 MG TABLET 2.5 MG PO (07:56)
--- NOTE | 2018-08-15 08:59 | PM.PNPO.1 ---
Subjective Date Patient Seen: 08/15/18 Time Patient Seen: 08:59 Interval history: Hospital day 3, postop day 2 following L4-5 hemilaminectomy, L5-S1 TLIF by Dr. Land. Patient has remained stable. Izzy had pain during the night and did not get much sleep. He has been taking oxycodone 10 mg and Vistaril 25 mg. H&H today 15.5/43.5. He still having some numbness and tingling to his left leg which he states is the same as it was before surgery. Did do some ambulation with physical therapy yesterday. Patient does not feel he is ready to be discharged home yet. He does live in [place] and has a 21-year-old son and girlfriend that will be available often on to help him at home. Exam Vital Signs (past 8 hours): - 08/15/18 04:20 08/15/18 08:34 Temperature 98.6 F 99.5 F Pulse Rate 90 93 H Respiratory Rate 18 16 Blood Pressure 115/75 134/81 Pulse Oximetry 94 94 Oxygen Delivery Method Room Air Oxygen Flow Rate 0 Narrative Exam Narrative: Alert, oriented no acute distress sitting in chair. Back. Dressing to the lumbar area is dry without drainage or inflammation. Legs. Patient able do full extension from sitting position bilateral. Sensation symmetrical to touch to lower legs. No calf pain or swelling. Pulses symmetrical. Good strength on ankle dorsiflexion plantar flexion symmetrical. Assessment & Plan Post-op Postoperative Procedures Operation Date: 08/13/18 13:45 Actual Procedures Side Surgeon p L4-5 Left Hemilaminectomy, L5-S1 TLIF w/Posterior Instrumentation Not Applicable Lottie Land MD Plan. Will observe patient today for improved function and pain control. Anticipate discharge home tomorrow if he is stable. Will apply CovRsite dressing to lumbar area before discharge. Quality VTE Deep Vein Thrombosis/Pulmonary Embolism Present on Admission: No
--- NOTE | 2018-08-15 09:02 | P.PN_ITS ---
Subjective Date Patient Seen: 08/15/18 Time Patient Seen: 08:59 Interval history: Hospital day 3, postop day 2 following L4-5 hemilaminectomy, L5-S1 TLIF by Dr. Land. Patient has remained stable. Izzy had pain during the night and did not get much sleep. He has been taking oxycodone 10 mg and Vistaril 25 mg. H&H today 15.5/43.5. He still having some numbness and tingling to his left leg which he states is the same as it was before surgery. Did do some ambulation with physical therapy yesterday. Patient does not feel he is ready to be discharged home yet. He does live in [place] and has a 21- year-old son and girlfriend that will be available often on to help him at home. Exam Vital Signs (past 8 hours): - 08/15/18 04:20 08/15/18 08:34 Temperature 98.6 F 99.5 F Pulse Rate 90 93 H Respiratory Rate 18 16 Blood Pressure 115/75 134/81 Pulse Oximetry 94 94 Oxygen Delivery Method Room Air Oxygen Flow Rate 0 Narrative Exam Narrative: Alert, oriented no acute distress sitting in chair. Back. Dressing to the lumbar area is dry without drainage or inflammation. Legs. Patient able do full extension from sitting position bilateral. Sensation symmetrical to touch to lower legs. No calf pain or swelling. Pulses symmetrical. Good strength on ankle dorsiflexion plantar flexion symmetrical. Assessment & Plan Post-op Postoperative Procedures Operation Date: 08/13/18 13:45 Actual Procedures Side Surgeon p L4-5 Left Hemilaminectomy, L5-S1 TLIF w/Posterior Instrumentation Not Applicable Lottie Land MD Plan. Will observe patient today for improved function and pain control. Anticipate discharge home tomorrow if he is stable. Will apply CovRsite dressing to lumbar area before discharge. Quality VTE Deep Vein Thrombosis/Pulmonary Embolism Present on Admission: No
--- NOTE | 2018-08-15 10:22 | PT.IPTN ---
Current Diagnoses Obstructive sleep apnea (adult) (pediatric) (08/13/18) Surgery Performed Operation Date: 08/13/18 13:45 Actual Procedures p L4-5 Left Hemilaminectomy, L5-S1 TLIF w/Posterior Instrumentation(Not Applicable) - Lottie Land MD Physical Therapy Treatment Note M2 PT-IP Current Condition Start: 08/14/18 13:06 Freq: NEEDED Status: Active Protocol: Document 08/14/18 10:40 AB (Rec: 08/14/18 13:30 AB [id number]) Physical Therapy Current Condition Current Condition Evaluation Date 08/14/18 Treatment Diagnosis s/p L5S1 fusion/lami; L4-5 hemilami; difficulties in walking Onset Date 08/13/18 Precautions Lumbar Precautions Log Roll No Twisting Limit Bending Lifting Restriction of 10 lbs Gait Belt above Incisional Area M3 PT-IP Subjective Start: 08/14/18 13:06 Freq: NEEDED Status: Active Protocol: Document 08/15/18 10:20 GGD (Rec: 08/15/18 12:22 GGD [email or web address]) Subjective Physical Therapy Visit Type Type Treatment Note Visit Start Time 09:50 Visit Stop Time 10:20 Total Visit Minutes 30 Number of PERIOPERATIVE NURSE Visits 2 Physical Therapy Visit Comments Patient Comments Pt states he would like to get back to bed. Therapy Pain Assessment Pain When Pain Assessed At Rest Pain Present Pain Present Pain Reported Location Lower Back Intensity 5 Scale Used Numeric (1 - 10) M4 PT-IP Mobility and Gait Start: 08/14/18 13:06 Freq: NEEDED Status: Active Protocol: Document 08/15/18 10:20 GGD (Rec: 08/15/18 12:22 GGD [id number]) PT-Bed Mobility Assessment Sit to Supine Sit to Supine Minimal Assistance 1 Person Assistance Bedrails Scooting Scooting to Edge of Bed Contact Guard Assistance PT-Transfer Assessment Sit to and From Stand Sit to and from Stand Minimal Assistance 1 Person Assistance Use of Upper Extremities Equipment Transfer Assistive Device Gait Belt Front Wheeled Walker Orthotic/Prosthetic Devices or Brace: No Transfers Transfer Destination Bed Transfer Ability Level of Assist Minimal Assistance 1 Person Assistance Use of Upper Extremities Gait Assessment Gait Gait Assistance Required: Contact Guard Assist 1 Person Assist Distance (Feet) 30 Able to Maintain Weight Bearing Status Yes During Gait Assistive Devices Assistive Device Gait Belt Front Wheeled Walker Orthotic/Prosthetic Devices or Brace: No Gait Deviations General Gait Pattern Decreased Stride Length Decreased Feet Clearance Flexed Trunk Factors Limiting Gait Function Factors Limiting Gait Function Decreased Strength Pain M5 PT-IP Objective Assessments Start: 08/14/18 13:06 Freq: NEEDED Status: Active Protocol: Document 08/14/18 10:40 AB (Rec: 08/14/18 13:30 AB [id number]) Orientation Orientation/Cognition Level of Alertness Alert Orientation Name Age Birthday Month Date Year Day of Week Place Situation Safety Awareness Decreased Safety Awareness Gross Range of Motion Lower Extremity ROM Assessment Within Functional Limits Strength Lower Extremity Strength Assessment Bilaterally Impaired Comments Strength Comments LLE: 3+/5 RLE 4-/5 Sensation Assessment Sensation Gross Sensation WNL M6 PT-IP Treatment Start: 08/14/18 13:06 Freq: NEEDED Status: Active Protocol: Document 08/15/18 10:20 GGD (Rec: 08/15/18 12:22 GGD [id number]) Physical Therapy Treatment Education Education Provided Precautions M7 PT-IP Assessment and Plan Start: 08/14/18 13:06 Freq: NEEDED Status: Active Protocol: Document 08/15/18 10:20 GGD (Rec: 08/15/18 12:22 GGD [id number]) PT Summary Assessment and Plan Summary Assessment Summary Pt is progressing slowly mobility. He needs assist with bed mobility. He has unsteadiness with gait and LE weakness. He has heavy use of UE with gait on FWW. Treatment Plan Physical Therapy Treatment Plan Bed Mobility Training Transfer Training Gait Training Therapeutic Exercise Balance Retraining Post Op Education Discharge Planning Hot or Cold Pack Neuromuscular Re-ed Coordination Retraining Manual Therapy Recommendations To Nursing Amount of Assist Needed 1 Person Assist Discharge Recommendations PT Discharge Recommendations Home with Assistance
--- NOTE | 2018-08-15 14:09 | OT.IP.TRT ---
Current Diagnoses Obstructive sleep apnea (adult) (pediatric) (08/13/18) Surgery Performed Operation Date: 08/13/18 13:45 Actual Procedures p L4-5 Left Hemilaminectomy, L5-S1 TLIF w/Posterior Instrumentation(Not Applicable) - Lottie Land MD Occupational Therapy Treatment Note M2 OT-IP Current Condition Start: 08/14/18 15:10 Freq: Status: Active Protocol: Document 08/14/18 13:20 PJM (Rec: 08/14/18 15:27 PJM [id number]) Occupational Therapy Current Condition Current Condition Evaluation Date 08/14/18 Treatment Diagnosis decreased self care, functional mobility s/p L4-5 lami, L5-S1 fusion Diagnosis Onset Date 08/13/18 Post Operative Precautions Lumbar Precautions Log Roll No Twisting Limit Bending Lifting Restriction of 10 lbs Gait Belt above Incisional Area M3 OT- IP Subjective and Pain Start: 08/14/18 15:10 Freq: Status: Active Protocol: Document 08/15/18 13:59 [facility] (Rec: 08/15/18 14:09 [facility] [id number]) OT- Subjective Occupational Therapy Visit Type Type Treatment Note Visit Start Time 13:25 Visit Stop Time 13:50 Total Visit Minutes 25 Occupational Therapy Visit Comments Patient Comments Pt having a lot of cramping for right hamstring. OT Pain Assessment Pain When Pain Assessed At Rest Pain Present Pain Present Pain Reported Location Right Leg Intensity 10 Scale Used Numeric (1 - 10) Pain Behaviors Holding Area Moaning M4 OT- IP ADL's Start: 08/14/18 15:10 Freq: Status: Active Protocol: Document 08/15/18 13:59 [facility] (Rec: 08/15/18 14:09 [facility] [id number]) OT ADL-Grooming General Evaluation Grooming Ability Standby Assistance Comments OT Grooming Comments Pt able to wash his hands at sink with use of FWW for balance. OT ADL-Dressing Comments OT Dressing Comments Pt issued LB dressing AED and initiated education for use. OT ADL-Toileting General Evaluation Toileting Ability Standby Assistance Comments OT Toileting Comments Pt able to stand with FWW over the toilet to urinate. OT ADL-Bathing Comments OT Bathing Comments Pt will look into getting shower chair otherwise to just sponge bath at home. M5 OT- IP IADL's Start: 08/14/18 15:10 Freq: Status: Active Protocol: Document 08/14/18 13:20 PJM (Rec: 08/14/18 15:27 PJM [id number]) OT-Instrumental Activities of Daily Living Deficits IADL Deficits Identified Deficits Home Safety Awareness Awareness of Need for Assistance at Home Good Awareness Ability to Problem Solve Emergency Able to Problem Solve Situations Medication Management Medication Management No Deficits Identified Meal Preparation Meal Preparation No Deficits Identified Meal Preparation Comments pt states girlfriend will provide intermittent assist and will do grocery shopping as needed Auto Air Conditioning Apprentice Auto Air Conditioning Apprentice Caregiver Provides Assist Auto Air Conditioning Apprentice Comments pt states girlfriend will provide intermittent assist as needed Driving Driving Caregiver Provides Assist Driving Comments friends to assist until pt able M6 OT- IP Functional Cognition Start: 08/14/18 15:10 Freq: Status: Active Protocol: Document 08/15/18 13:59 [facility] (Rec: 08/15/18 14:09 [facility] [id number]) Cognitive Factors Limiting Selfcare Function Cognitive Ability Level of Alertness Alert Attention Span Ability Capable of Focused Attention Capable of Sustained Attention Ability to Follow Commands Able to Follow Multi-Step Commands Memory Description No Deficits Noted Safety Awareness No Deficits Noted Cognitive Comments Cognitive Assessment Comments Pt thinking better today, however a little distracted form the pain. M7 OT- IP Mobility and Balance Start: 08/14/18 15:10 Freq: Status: Active Protocol: Document 08/15/18 13:59 [facility] (Rec: 08/15/18 14:09 [facility] [id number]) OT- Bed Mobility Assessment Rolling Type of Rolling Roll to Left Level of Assistance Bedrails Supine to Sit Supine to Sit Assist Standby Assistance OT-Transfer Assessment Sit to and From Stand Sit to and from Stand Contact Guard Assistance Transfers Transfer Ability Contact Guard Assistance Technique Transfer Destination Bed Chair OT- Balance Assessment Sitting Balance and Reactions Static Sitting Balance Ability Normal Dynamic Sitting Balance Ability Good Standing Balance and Reactions Static Standing Balance Ability Good M8 OT- IP Objective Assessments Start: 08/14/18 15:10 Freq: Status: Active Protocol: Document 08/14/18 13:20 PJM (Rec: 08/14/18 15:27 PJ [id number]) OT Gross Range of Motion Upper Extremity Range of Motion Assessment Within Functional Limits OT Strength Upper Extremity Strength Assessment Within Functional Limits Hand Goat Farmer Strength Hand Dominance Right OT- Coordination Assessment Comments Coordination Comments BUE WNL OT-Muscle Tone Assessment Muscle Tone WNL Yes OT Sensation Assessment Comments Summary Comments BUE WNL per pt report Edema Edema Absent M9 OT- IP Assessment and Plan Start: 08/14/18 15:10 Freq: Status: Active Protocol: Document 08/15/18 13:59 [facility] (Rec: 08/15/18 14:09 [facility] [id number]) OT Summary Assessment and Plan Potential Rehabilitation Potential Good Analytic Complexity at Evaluation Low Summary OT Impairments Pain Balance Functional Mobility Grooming Dressing Toileting Bathing Toilet Transfers Shower Transfers Progress Towards Goals Slow Progress due to Pain Assessment Summary Pt main barrier is pain at this time, continue to practice with OT with AED for dressing and showering needs prior to going home and family training as needed. Goals Days to Meet Goals 2 Frequency of Treatment Frequency Of Treatment Once a Day Treatment Plan OT Treatment Plan ADL Training Functional Mobility Patient/Family Education Discharge Planning Discharge Recommendations OT Discharge Recommendations Home with Assistance Home Equipment Needs shower chair
--- NOTE | 2018-08-15 15:30 | PT.IPTN ---
Current Diagnoses Obstructive sleep apnea (adult) (pediatric) (08/13/18) Surgery Performed Operation Date: 08/13/18 13:45 Actual Procedures p L4-5 Left Hemilaminectomy, L5-S1 TLIF w/Posterior Instrumentation(Not Applicable) - Lottie Land MD Physical Therapy Treatment Note M2 PT-IP Current Condition Start: 08/14/18 13:06 Freq: NEEDED Status: Active Protocol: Document 08/14/18 10:40 AB (Rec: 08/14/18 13:30 AB [id number]) Physical Therapy Current Condition Current Condition Evaluation Date 08/14/18 Treatment Diagnosis s/p L5S1 fusion/lami; L4-5 hemilami; difficulties in walking Onset Date 08/13/18 Precautions Lumbar Precautions Log Roll No Twisting Limit Bending Lifting Restriction of 10 lbs Gait Belt above Incisional Area M3 PT-IP Subjective Start: 08/14/18 13:06 Freq: NEEDED Status: Active Protocol: Document 08/15/18 15:30 GGD (Rec: 08/15/18 16:09 GGD [id number]) Subjective Physical Therapy Visit Type Type Treatment Note Visit Start Time 15:00 Visit Stop Time 15:30 Total Visit Minutes 30 Number of BOOK RETAILER Visits 3 Physical Therapy Visit Comments Patient Comments Pt states he having less pain sitting in chair. Therapy Pain Assessment Pain When Pain Assessed At Rest Pain Present Pain Present Pain Reported M4 PT-IP Mobility and Gait Start: 08/14/18 13:06 Freq: NEEDED Status: Active Protocol: Document 08/15/18 15:30 GGD (Rec: 08/15/18 16:09 GGD [id number]) PT-Transfer Assessment Sit to and From Stand Sit to and from Stand Moderate Assistance 1 Person Assistance Use of Upper Extremities Equipment Transfer Assistive Device Gait Belt Front Wheeled Walker Orthotic/Prosthetic Devices or Brace: No Transfers Transfer Destination Chair Toilet Transfer Ability Level of Assist Moderate Assistance 1 Person Assistance Use of Upper Extremities Gait Assessment Gait Gait Assistance Required: Contact Guard Assist 1 Person Assist Distance (Feet) 60 Able to Maintain Weight Bearing Status Yes During Gait Assistive Devices Assistive Device Gait Belt Front Wheeled Walker Orthotic/Prosthetic Devices or Brace: No Gait Deviations General Gait Pattern Decreased Stride Length Decreased Feet Clearance Flexed Trunk Factors Limiting Gait Function Factors Limiting Gait Function Decreased Strength Pain M5 PT-IP Objective Assessments Start: 08/14/18 13:06 Freq: NEEDED Status: Active Protocol: Document 08/14/18 10:40 AB (Rec: 08/14/18 13:30 AB [id number]) Orientation Orientation/Cognition Level of Alertness Alert Orientation Name Age Birthday Month Date Year Day of Week Place Situation Safety Awareness Decreased Safety Awareness Gross Range of Motion Lower Extremity ROM Assessment Within Functional Limits Strength Lower Extremity Strength Assessment Bilaterally Impaired Comments Strength Comments LLE: 3+/5 RLE 4-/5 Sensation Assessment Sensation Gross Sensation WNL M6 PT-IP Treatment Start: 08/14/18 13:06 Freq: NEEDED Status: Active Protocol: Document 08/15/18 15:30 GGD (Rec: 08/15/18 16:09 GGD [id number]) Physical Therapy Treatment Education Education Provided Precautions M7 PT-IP Assessment and Plan Start: 08/14/18 13:06 Freq: NEEDED Status: Active Protocol: Document 08/15/18 15:30 GGD (Rec: 08/15/18 16:09 GGD [id number]) PT Summary Assessment and Plan Summary Assessment Summary Pt is progressing slowly. He needs mod a for sit to stand. He was able to progress gait, but still has unsteadiness with knee buckling. He has heavy UE use on FWW. Frequency of Treatment Frequency Of Treatment Twice a Day Treatment Plan Physical Therapy Treatment Plan Bed Mobility Training Transfer Training Gait Training Therapeutic Exercise Balance Retraining Post Op Education Discharge Planning Hot or Cold Pack Neuromuscular Re-ed Coordination Retraining Manual Therapy Recommendations To Nursing Amount of Assist Needed 1 Person Assist Discharge Recommendations PT Discharge Recommendations Home with Assistance
--- NOTE | 2018-08-15 15:32 | PC.NURSE ---
Pain managed below 4 with PO percolone and visitiril; dressing changed at 1015 with gauze and tape; incision well-approximated with cristina; patient voiding in urinal; patient ambulating in hallway with PT and fww
[2018-08-15] MEDS: DEXAMETHASONE 10 MG/ML VIAL IV (17:08)
[2018-08-15] MEDS: SENNOSIDES 8.6 MG TABLET 17.2 MG PO (20:26)
[2018-08-15] MEDS: DOCUSATE 100 MG CAPSULE PO (20:26)
[2018-08-15] MEDS: METOPROLOL ER 25 MG TABLET PO (20:27)
[2018-08-15] MEDS: ATORVASTATIN 20 MG TABLET 80 MG PO (20:29)
[2018-08-16] MEDS: OXYCODONE IR 5 MG TABLET 10 MG PO ×3 (00:39→12:33)
[2018-08-16 00:45] VITALS: BP 120/76; PULSE 88; RESP 18; TEMP 36.7; O2SAT 94
[2018-08-16 08:12] VITALS: BP 114/64; PULSE 84; RESP 18; TEMP 36.6; O2SAT 96
[2018-08-16] MEDS: LISINOPRIL 5 MG TABLET 2.5 MG PO (08:42)
[2018-08-16] MEDS: DOCUSATE 100 MG CAPSULE PO (08:42)
[2018-08-16] MEDS: SODIUM CHLORIDE 0.9% FLUSH 10 ML IV (08:43)
--- NOTE | 2018-08-16 09:06 | P.DS_ITS ---
History of Present Illness Date Patient Seen: 08/16/18 Chief complaint: [id number] L4-5 L5-S1 Narrative: Patient seen bedside s/p L4-5 hemilaminectomy, L5-S1 TLIF with posterior instrumentation on 08/13/18. Patient is POD #3. He is doing better today, he had some increased pain yesterday that has since resolved with a one time dose of dexamethasone. Today he is relatively comfortable. Denies numbness/tingling, CP, SOB, calf pain. Discharge Providers Date of admission: 08/13/18 11:36 Primary care physician: Esperanza Roca PA-C Consults: 08/13/18 17:32 Consult to Occupational Therapy Evaluate & Treat Comment: Physician Instructions: Evaluate and treat Consult to Physical Therapy Evaluate & Treat Comment: Physician Instructions: Evaluate and Treat Discharge provider: Laila Whitney PA-C Discharge Date: 08/16/18 Summary Discharge Diagnosis: 1. Spinal stenosis of lumbar region at multiple levels 2. Lumbar post-laminectomy syndrome 3. OA of spine with radiculopathy Hospital Course: Patient admitted to the hospital s/p L4-5 hemilaminectomy, L5- S1 TLIF with posterior instrumentation on 08/13/18. Patient tolerated the procedure well with no major complications. He was seen by PT who recommended that the patient be discharged home. Patient was stable and ready for discharge on 08/16/18. Status at Discharge Cognitive/behavioral status at discharge: Alert & oriented x3 Functional status at discharge: uses cane/walker Overall status at discharge: patient is progressing back to baseline Time Spent with Patient Less than 30 minutes Exam Vital Signs (past 8 hours): - 08/16/18 08:12 Temperature 97.8 F Pulse Rate 84 Respiratory Rate 18 Blood Pressure 114/64 Pulse Oximetry 96 Oxygen Delivery Method Room Air Oxygen Flow Rate 0 Narrative Exam Narrative: WDWN NAD A&Ox3. Dressing is CDI, small amount of old drainage at most distal aspect. Full ROM of the foot/ankle. Ambulating well with walker. No focal deficits noted. Discharge Plan Discharge Plan Patient Disposition: Home Discharge comment: change dressing to op site prior to d/c Discharge Med Rec/Prescriptions Prescriptions: New hydroxyzine pamoate 25 mg Capsule 25 mg PO Q4HR PRN (Reason: Nausea) Qty: 50 RF: 0 oxycodone 5 mg tablet 5 mg PO Q4-6H PRN (Reason: pain) Qty: 40 RF: 0 docusate sodium 100 mg Capsule 100 mg PO BID Qty: 0 RF: 0 Continue atorvastatin 80 MG tablet 80 mg PO HS Qty: 90 RF: 1 lisinopril 2.5 MG tablet 2.5 mg PO QDAY Qty: 30 RF: 0 nitroglycerin [Nitrostat] 0.4 MG tablet, sublingual 0.4 mg Sublingual PRN PRN (Reason: Chest Pain) Qty: 0 RF: 0 vardenafil [Levitra] 20 mg tablet 20 mg PO QDAYP Qty: 10 RF: 0 ranitidine HCl 150 mg tablet 150 mg PO BID Qty: 180 RF: 1 Magic Mouthwash liquid 15 ml .ROUTE SEEINSTR RF: 0 clopidogrel 75 mg Tablet 75 mg PO DAILY RF: 0 Discontinued acetaminophen 325 MG tablet 325 mg PO PRN PRN (Reason: Pain) Qty: 0 RF: 0 aspirin 81 mg Tablet,Delayed Release (Dr/Ec) 81 mg PO DAILY RF: 0 No Action beclomethasone dipropionate [Qvar] 80 mcg/actuation aerosol 1 puff INHALATION ONCE RF: 0 metoprolol succinate 25 mg Tablet Extended Release 24 Hr 25 mg PO DAILY RF: 0 varicella-zoster [id number] (PF) [Shingrix (PF)] 50 mcg/0.5 mL suspension for reconstitution 50 mcg IM ONCE Qty: 1 RF: 1 hydrocodone-acetaminophen 5-325 mg tablet 1 tab PO HSP PRN (Reason: pain) Qty: 30 RF: 0 Follow up/Referrals: Lottie Land MD [Physician] - 08/27/18 1:00 pm (Follow up appointment with Janet Joy PA-C at the [facility] office.) Provider Discharge Instructions Diet: Diet as Tolerated Activity: Weightbearing as tolerated, limit lifting to no more than 5 lbs, bending, and twisting. Cold/Heat Therapy: Apply ice twenty minutes at a time as needed to operative site at least hourly while awake Skin/Wound/Dressing Care Report to your healthcare provider any signs of infection, such as:: chills, fever, night sweats, increased pain and unusual drainage Dressing: Keep surgical dressing clean, dry, and intact Visit Report/Discharge Packet Instructions: DI for Transforaminal Lumbar Interbody Fusion Discharge Data Primary Care Provider: Esperanza Roca Attending Provider: Lottie Land Admit Date/Time: 08/13/18 11:36 Quality VTE Deep Vein Thrombosis/Pulmonary Embolism Present on Admission: No
--- NOTE | 2018-08-16 09:25 | PT.IPTN ---
Current Diagnoses Obstructive sleep apnea (adult) (pediatric) (08/13/18) Surgery Performed Operation Date: 08/13/18 13:45 Actual Procedures p L4-5 Left Hemilaminectomy, L5-S1 TLIF w/Posterior Instrumentation(Not Applicable) - Lottie Land MD Physical Therapy Treatment Note M2 PT-IP Current Condition Start: 08/14/18 13:06 Freq: NEEDED Status: Active Protocol: Document 08/14/18 10:40 AB (Rec: 08/14/18 13:30 AB [id number]) Physical Therapy Current Condition Current Condition Evaluation Date 08/14/18 Treatment Diagnosis s/p L5S1 fusion/lami; L4-5 hemilami; difficulties in walking Onset Date 08/13/18 Precautions Lumbar Precautions Log Roll No Twisting Limit Bending Lifting Restriction of 10 lbs Gait Belt above Incisional Area M3 PT-IP Subjective Start: 08/14/18 13:06 Freq: NEEDED Status: Active Protocol: Document 08/16/18 09:25 GGD (Rec: 08/16/18 12:04 GGD [email or web address]) Subjective Physical Therapy Visit Type Type Treatment Note Visit Start Time 08:55 Visit Stop Time 09:25 Total Visit Minutes 30 Number of SPRINKLER TRUCK DRIVER Visits 4 Physical Therapy Visit Comments Patient Comments pt states he feeling better. Therapy Pain Assessment Pain When Pain Assessed At Rest Pain Present Pain Present Pain Reported Location Lower Back Intensity 3 Scale Used Numeric (1 - 10) M4 PT-IP Mobility and Gait Start: 08/14/18 13:06 Freq: NEEDED Status: Active Protocol: Document 08/16/18 09:25 GGD (Rec: 08/16/18 12:04 GGD [email or web address]) PT-Bed Mobility Assessment Rolling Type of Rolling Log Rolling Roll to Left Level of Assist Standby Assistance Supine to Sit Supine to Sit Contact Guard Assistance Scooting Scooting to Edge of Bed Standby Assistance PT-Transfer Assessment Sit to and From Stand Sit to and from Stand Contact Guard Assistance Use of Upper Extremities Equipment Transfer Assistive Device Gait Belt Front Wheeled Walker Orthotic/Prosthetic Devices or Brace: No Transfers Transfer Destination Chair Toilet Transfer Ability Level of Assist Contact Guard Assistance Gait Assessment Gait Gait Assistance Required: Contact Guard Assist 1 Person Assist Distance (Feet) 200 Able to Maintain Weight Bearing Status Yes During Gait Assistive Devices Assistive Device Gait Belt Front Wheeled Walker Orthotic/Prosthetic Devices or Brace: No Gait Deviations General Gait Pattern Decreased Stride Length Decreased Feet Clearance Flexed Trunk Factors Limiting Gait Function Factors Limiting Gait Function Decreased Strength Pain Stair Climbing Assessment Evaluation Level of Assist On Stairs Contact Guard Assistance Devices Stair Climbing Assistive Devices Left Railing Right Railing Technique/Endurance Stair Climbing Direction Ascend and Descend Stair Climbing Technique Step to Step Number of Steps Climbed 3 Query Text: Stair Climbing Set # Repetitions (reps) 6 Comments Stair Climbing Comments Pt useed right rail for 3 set and then left rail for 3 sets M5 PT-IP Objective Assessments Start: 08/14/18 13:06 Freq: NEEDED Status: Active Protocol: Document 08/14/18 10:40 AB (Rec: 08/14/18 13:30 AB [id number]) Orientation Orientation/Cognition Level of Alertness Alert Orientation Name Age Birthday Month Date Year Day of Week Place Situation Safety Awareness Decreased Safety Awareness Gross Range of Motion Lower Extremity ROM Assessment Within Functional Limits Strength Lower Extremity Strength Assessment Bilaterally Impaired Comments Strength Comments LLE: 3+/5 RLE 4-/5 Sensation Assessment Sensation Gross Sensation WNL M6 PT-IP Treatment Start: 08/14/18 13:06 Freq: NEEDED Status: Active Protocol: Document 08/16/18 09:25 GGD (Rec: 08/16/18 12:04 GGD [email or web address]) Physical Therapy Treatment Education Education Provided Precautions M7 PT-IP Assessment and Plan Start: 08/14/18 13:06 Freq: NEEDED Status: Active Protocol: Document 08/16/18 09:25 GGD (Rec: 08/16/18 12:04 GGD [email or web address]) PT Summary Assessment and Plan Summary Assessment Summary Pt improving with mobility. He need SBA to CGA with mobility . He was able to progress gait distance. He was safe and stable with stairs. Frequency of Treatment Frequency Of Treatment Twice a Day Treatment Plan Physical Therapy Treatment Plan Bed Mobility Training Transfer Training Gait Training Therapeutic Exercise Balance Retraining Post Op Education Discharge Planning Hot or Cold Pack Neuromuscular Re-ed Coordination Retraining Manual Therapy Recommendations To Nursing Amount of Assist Needed 1 Person Assist Discharge Recommendations PT Discharge Recommendations Home with Assistance
[2018-08-16] MEDS: hydrOXYzine pamoate 25 MG CAPSULE PO (09:30)
--- NOTE | 2018-08-16 10:37 | OT.IP.TRT ---
Current Diagnoses Obstructive sleep apnea (adult) (pediatric) (08/13/18) Surgery Performed Operation Date: 08/13/18 13:45 Actual Procedures p L4-5 Left Hemilaminectomy, L5-S1 TLIF w/Posterior Instrumentation(Not Applicable) - Lottie Land MD Occupational Therapy Treatment Note M2 OT-IP Current Condition Start: 08/14/18 15:10 Freq: Status: Active Protocol: Document 08/14/18 13:20 PJM (Rec: 08/14/18 15:27 PJM [id number]) Occupational Therapy Current Condition Current Condition Evaluation Date 08/14/18 Treatment Diagnosis decreased self care, functional mobility s/p L4-5 lami, L5-S1 fusion Diagnosis Onset Date 08/13/18 Post Operative Precautions Lumbar Precautions Log Roll No Twisting Limit Bending Lifting Restriction of 10 lbs Gait Belt above Incisional Area M3 OT- IP Subjective and Pain Start: 08/14/18 15:10 Freq: Status: Active Protocol: Document 08/16/18 10:25 [facility] (Rec: 08/16/18 10:37 [facility] [id number]) OT- Subjective Occupational Therapy Visit Type Type Treatment Note Visit Start Time 09:53 Visit Stop Time 10:23 Total Visit Minutes 30 Occupational Therapy Visit Comments Patient Comments Pt wanting to shower prior to going home. OT Pain Assessment Pain When Pain Assessed At Rest Pain Present Pain Present Pain Reported M4 OT- IP ADL's Start: 08/14/18 15:10 Freq: Status: Active Protocol: Document 08/16/18 10:25 [facility] (Rec: 08/16/18 10:37 [facility] [id number]) OT ADL-Dressing General Eval Upper Body Dressing Ability Independent Lower Body Dressing Ability Standby Assistance Assistive Devices Dressing Assistive Devices Explosive Man Comments OT Dressing Comments VC for orientation of underwear, pt able to use wool mixer to assist to russell underwear. OT ADL-Toileting General Evaluation Toileting Ability Standby Assistance Comments OT Toileting Comments Pt able to stand with FWW over toilet to urinate. OT ADL-Bathing Bathing Type Bathing Type Shower General Evaluation Bathing Ability Minimal Assistance Areas Needing Assistance Retrieving/Setting Up Items Wash/Dry Upper Body Devices Bathing Equipment Long Handled Sponge or [place] Shower Chair with Arms Grab Bars Comments OT Bathing Comments Pt able to stand with shower with FWW, for steadiness and also use of grab bars. Pt only needing assist to wash/dry his back. M5 OT- IP IADL's Start: 08/14/18 15:10 Freq: Status: Active Protocol: Document 08/14/18 13:20 PJM (Rec: 08/14/18 15:27 PJM [id number]) OT-Instrumental Activities of Daily Living Deficits IADL Deficits Identified Deficits Home Safety Awareness Awareness of Need for Assistance at Home Good Awareness Ability to Problem Solve Emergency Able to Problem Solve Situations Medication Management Medication Management No Deficits Identified Meal Preparation Meal Preparation No Deficits Identified Meal Preparation Comments pt states girlfriend will provide intermittent assist and will do grocery shopping as needed Logistics Engineering Manager Logistics Engineering Manager Caregiver Provides Assist Logistics Engineering Manager Comments pt states girlfriend will provide intermittent assist as needed Driving Driving Caregiver Provides Assist Driving Comments friends to assist until pt able M6 OT- IP Functional Cognition Start: 08/14/18 15:10 Freq: Status: Active Protocol: Document 08/16/18 10:25 [facility] (Rec: 08/16/18 10:37 [facility] [id number]) Cognitive Factors Limiting Selfcare Function Cognitive Ability Level of Alertness Alert Patient Orientation Name Place Situation Attention Span Ability Capable of Focused Attention Capable of Sustained Attention Ability to Follow Commands Able to Follow One Step Commands Safety Awareness Underestimates Need for Assistance Problem Solving Ability Needs Assist to Identify Solutions Cognitive Comments Cognitive Assessment Comments Pt needing increased time to think through sequence of task for showering and dressing, pt will benefit from assist at home for showering needs. M7 OT- IP Mobility and Balance Start: 08/14/18 15:10 Freq: Status: Active Protocol: Document 08/16/18 10:25 [facility] (Rec: 08/16/18 10:37 [facility] [id number]) OT-Transfer Assessment Sit to and From Stand Sit to and from Stand Standby Assistance Transfers Transfer Ability Standby Assistance Technique Transfer Destination Chair Shower Stall Transfer Technique Stand Step Pivot Devices Transfer Assistive Devices Gait Belt Front Wheeled Walker Comments Mobility Comments Pt CGA over threshold of shower and SBA for even surfaces with FWW. Pt vc to straighten legs up while coming to stand. Pt states looking at getting extra cushion for his chair at home for comfort and help increase height for ease of transfer. OT- Balance Assessment Sitting Balance and Reactions Static Sitting Balance Ability Normal Dynamic Sitting Balance Ability Normal Standing Balance and Reactions Static Standing Balance Ability Good Dynamic Standing Balance Ability Fair M8 OT- IP Objective Assessments Start: 08/14/18 15:10 Freq: Status: Active Protocol: Document 08/14/18 13:20 PJM (Rec: 08/14/18 15:27 PJM [id number]) OT Gross Range of Motion Upper Extremity Range of Motion Assessment Within Functional Limits OT Strength Upper Extremity Strength Assessment Within Functional Limits Hand Executive Director Of Nursing Strength Hand Dominance Right OT- Coordination Assessment Comments Coordination Comments BUE WNL OT-Muscle Tone Assessment Muscle Tone WNL Yes OT Sensation Assessment Comments Summary Comments BUE WNL per pt report Edema Edema Absent M9 OT- IP Assessment and Plan Start: 08/14/18 15:10 Freq: Status: Active Protocol: Document 08/16/18 10:25 [facility] (Rec: 08/16/18 10:37 [facility] [id number]) OT Summary Assessment and Plan Potential Rehabilitation Potential Good Analytic Complexity at Evaluation Low Summary OT Impairments Pain Balance Dressing Bathing Progress Towards Goals Progressing Toward Goals Assessment Summary Pt doing much better today and to go home today with assist . Goals Days to Meet Goals 1 Frequency of Treatment Frequency Of Treatment Once a Day Treatment Plan OT Treatment Plan ADL Training Functional Mobility Patient/Family Education Discharge Planning Discharge Recommendations OT Discharge Recommendations Home with Assistance Home Equipment Needs shower chair
--- NOTE | 2018-08-16 12:52 | PC.NURSE ---
Discharge instructions with home care handouts reviewed with patient. IV dc'd intact. Coversite dressing to back incision CDI. Patient escorted out via wheelchair with all belongings with POLICE DISTRICT SWITCHBOARD OPERATOR to be discharged to home with son and signigicant other. Patient has follow up scheduled. Instructed to call [facility] office with questions or concerns.
== END 2018-08-16 12:57 | disposition home or self-care (01) | DRG 455 ==
PROVIDERS: Physician Assistant Surgical; Admitting Provider Orthopaedic Surgery Orthopaedic Surgery of the Spine; Family Provider Physician Assistant; PCP Physician Assistant; Visit Provider Orthopaedic Surgery Orthopaedic Surgery of the Spine
PROC: 0SG30AJ Fusion of Lumbosacral Joint with Interbody Fusion Device, Posterior Approach, Anterior Column, Open Approach (ICD-10-PCS; principal; 2018-08-13 13:45)
DX: M48.07 Spinal stenosis, lumbosacral region (principal); M48.061 Spinal stenosis, lumbar region without neurogenic claudication; M47.26 Other spondylosis with radiculopathy, lumbar region; M96.1 Postlaminectomy syndrome, not elsewhere classified; I25.10 Atherosclerotic heart disease of native coronary artery without angina pectoris; I10 Essential (primary) hypertension
CPT/HCPCS: 72100; 76001; 85610; 97116; 97162; 97165; 97530; 97535; C1776; C9290; J0131; J0330; J0690; J1100; J1170; J2060; J2250; J2405; J2704; J3010

== ENCOUNTER → 2018-12-16 16:38 | Outpatient (CLI) | payer OTHER, SELFPAY ==
[2018-08-13 13:28] VITALS: BMI 32.4
--- NOTE | 2018-12-16 16:41 | DI.RAD.S_ITS ---
PROCEDURE: XR HIP W PEL IF DONE LT 2V INDICATIONS: Left hip pain - spinal fusion done in 08/24 TECHNIQUE: 2 views of the hip were acquired. COMPARISON: None. FINDINGS: Bones: No fractures or dislocations. No suspicious bony lesions. The visualized pelvic ring appears intact. Unremarkable left hip. Lumbosacral fusion. Soft tissues: No suspicious soft tissue calcifications or masses. IMPRESSION: Unremarkable left hip. Dictated by: Diego Huang M.D. on 12/17/2018 at 9:41 Approved by: Diego Huang M.D. on 12/17/2018 at 9:42
== END ==
PROVIDERS: Family Provider Physician Assistant; PCP Physician Assistant; Visit Provider Physician Assistant
DX: M25.552 Pain in left hip (principal); Z98.1 Arthrodesis status
CPT/HCPCS: 73502

== ENCOUNTER → 2019-02-26 15:40 | Outpatient (CLI) | payer OTHER, SELFPAY ==
[2018-08-13 13:28] VITALS: BMI 32.4
--- NOTE | 2019-02-26 | DI.CT.S_ITS ---
PROCEDURE: CT LUMBAR SPINE WO CON INDICATIONS: Other spondylosis with radiculopathy, lumbar regio TECHNIQUE: Noncontrast 3 mm thick sections acquired from the T12 level to the sacrum. Sagittal and coronal reformats were constructed. For radiation dose reduction, the following was used: automated exposure control. COMPARISON: [facility], MR, MR LUMBAR SPINE WO CON, 04/18/2018, 15:28. [facility], CR, XR LUMBAR SPINE 2-3V, 08/13/2018, 13:44. FINDINGS: Image quality: Excellent. Bones: There is normal bony alignment. No acute vertebral body compression fractures. No suspicious lytic or blastic bony lesions. Central spinal caliber is of normal overall caliber. No pars defects. T12-L1: Normal. L1-L2: No significant abnormality is seen. L2-L3: Normal. L3-L4: The disc height is well-preserved. Mild disc bulge is seen. Minimal to mild bilateral neural foraminal narrowing is seen. Minimal to mild central canal narrowing is seen. When comparison is made with the prior examination, these findings are similar. L4-L5: The disc height is well-preserved. Mild disc bulge is seen. Ecjc-fz-tiyaweph facet hypertrophy is seen. There is moderate left-sided and mild right-sided neural foraminal narrowing seen. Moderate central canal narrowing is seen. When comparison is made with the prior examination, these findings are similar. L5-S1: Postoperative changes are seen at this level, bilateral pedicle screws and vertical fixation rods. There is a disc spacer seen at this level. There is streak artifact associated with the metallic hardware. No findings of hardware failure or hardware loosening are seen. Moderate generalized disc bulge is seen. There is mild right-sided and no left-sided neural foraminal narrowing seen. No significant central canal narrowing is seen. Soft tissues: No retroperitoneal masses or hematomas. Visualized aorta is normal in caliber. Atherosclerotic calcification is noted. Multiple bilateral renal cysts are seen, which are more numerous on the left than on the right. These have been previously seen by MRI. IMPRESSION: Unremarkable L5-S1 postoperative hardware, without findings of hardware failure or loosening. Lower lumbar spine degenerative changes are seen, which are similar to the prior MRI. Dictated by: Pillo Noel M.D. on 02/26/2019 at 17:43 Approved by: Pillo Noel M.D. on 02/26/2019 at 17:49
== END ==
PROVIDERS: Family Provider Physician Assistant; PCP Physician Assistant; Visit Provider Orthopaedic Surgery Orthopaedic Surgery of the Spine
DX: M47.26 Other spondylosis with radiculopathy, lumbar region (principal); N28.1 Cyst of kidney, acquired; I25.10 Atherosclerotic heart disease of native coronary artery without angina pectoris; Z98.1 Arthrodesis status
CPT/HCPCS: 72131

== ENCOUNTER → 2019-04-06 10:52 | Outpatient (CLI) | payer OTHER, SELFPAY ==
[2018-08-13 13:28] VITALS: BMI 32.4
--- NOTE | 2019-04-06 | DI.RAD.S_ITS ---
PROCEDURE: XR CHEST 2V INDICATIONS: shortness of breath TECHNIQUE: 2 views of the chest were acquired. COMPARISON: [facility], , CHEST 1 VIEW, 09/19/2016, 19:58. FINDINGS: Surgical changes and devices: Soft tissue anchor projecting in the left humeral head. Lungs and pleura: Low lung volumes with scattered subsegmental atelectasis/scarring. No pleural effusions or pneumothorax. Mediastinum: Mediastinal contours are normal. Heart size is normal. Bones and chest wall: No suspicious bony abnormalities. Soft tissues appear unremarkable. IMPRESSION: No acute disease Dictated by: Jose Raul Noriega M.D. on 04/06/2019 at 13:18 Approved by: Jose Raul Noriega M.D. on 04/06/2019 at 13:19
== END ==
PROVIDERS: Family Provider Internal Medicine Cardiovascular Disease; PCP Physician Assistant; Visit Provider Internal Medicine Cardiovascular Disease
DX: R06.02 Shortness of breath (principal)
CPT/HCPCS: 71046

== ENCOUNTER → 2019-04-14 08:28 | Outpatient (CLI) | payer OTHER, SELFPAY ==
[2018-08-13 13:28] VITALS: BMI 32.4
--- NOTE | 2019-04-14 | DI.RAD.S_ITS ---
PROCEDURE: XR CHEST 2V INDICATIONS: SHORT OF BREATH TECHNIQUE: 2 views of the chest were acquired. COMPARISON: [facility], CR, XR CHEST 2V, 04/06/2019, 11:22. FINDINGS: Surgical changes and devices: None. Lungs and pleura: Lungs are clear. No pleural effusions or pneumothorax. Mediastinum: Mediastinal contours are normal. Heart size is normal. Bones and chest wall: No suspicious bony abnormalities. Soft tissues appear unremarkable. IMPRESSION: No acute cardiopulmonary pathology. Dictated by: Shahriar Monreal M.D. on 04/14/2019 at 11:14 Approved by: Shahriar Monreal M.D. on 04/14/2019 at 11:15
--- NOTE | 2019-04-14 08:32 | DI.US.S_ITS ---
PROCEDURE: US SCROTUM INDICATIONS: TESTICULAR PAIN, LT GROIN PAIN, POSSIBLE HERNIA RECURRENCE TECHNIQUE: Real-time scanning was performed of the scrotum and testicles, with image documentation. Color and pulse Doppler interrogation was performed of both testicles. COMPARISON: None. FINDINGS: Right: Testicle is normal in size at 4.2 x 1.9 x 2.8 cm, and homogenous in echotexture. Epididymis is normal in overall size. Heterogeneous epididymal echogenicity with echogenic foci seen in periphery of right epididymis are seen. Normal blood flow is seen within the right epididymis. Small right hydrocele is seen. No varicoceles. Overlying scrotal skin is normal in thickness. Left: Testicle is normal in size at 3.8 a 2 x 2.9 cm, and homogeneous in echotexture. Epididymis is normal in overall size and is homogeneous in echotexture. Normal blood flow is seen in epididymis. 6 mm cystic structure adjacent to left epididymis is seen. Moderate left hydrocele and left-sided varicoceles are seen. Overlying scrotal skin is normal in thickness. Doppler: Color and pulse Doppler demonstrate normal and symmetric arterial flow in both testicles. IMPRESSION: 1. Normal appearing bilateral testes. No evidence of testicular torsion. 2. Left greater than right bilateral hydrocele. Prominent left-sided varicoceles. 3. Heterogeneous echotexture of right epididymis with internal echogenic foci which could represent calcification from prior injury/infraction. 4. 6 mm cystic structure adjacent to left epididymis, and may represent a small exophytic left epididymal cyst. Dictated by: Shahriar Monreal M.D. on 04/14/2019 at 11:27 Approved by: Shahriar Monreal M.D. on 04/14/2019 at 11:38
--- NOTE | 2019-04-14 08:32 | DI.US.S_ITS ---
PROCEDURE: US ABDOMEN LIMITED INDICATIONS: LT GROIN PAIN, POSSIBLE HERNIA RECURRENCE TECHNIQUE: Real-time focused scanning was performed of the abdomen, with image documentation. COMPARISON: None. FINDINGS: Focused ultrasound examination of left inguinal region shows large area of through acoustic shadowing. No similar finding is noted in right inguinal region. IMPRESSION: Large area of acoustic shadowing in left inguinal region which could represent surgical mesh from prior repair. Clinical correlation is recommended. No definite herniated bowel loops is seen. If indicated, CT of pelvis can be done for further evaluation. Dictated by: Shahriar Monreal M.D. on 04/14/2019 at 11:41 Approved by: Shahriar Monreal M.D. on 04/14/2019 at 11:45
[2019-04-14 09:34] LABS: Cholesterol 128 mg/dL (140-199); HDL Cholesterol 29 mg/dL (40-60); LDL Cholesterol Calculated 61 mg/dL (<100); Triglycerides 191 mg/dL (35-150)
== END ==
PROVIDERS: Family Provider Internal Medicine Cardiovascular Disease; PCP Physician Assistant; Visit Provider Surgery
DX: R10.32 Left lower quadrant pain (principal); R06.02 Shortness of breath; E78.00 Pure hypercholesterolemia, unspecified; N50.819 Testicular pain, unspecified; N43.3 Hydrocele, unspecified; I86.1 Scrotal varices
CPT/HCPCS: 36415; 71046; 76705; 76870; 80061

== ENCOUNTER → 2019-04-16 08:40 | Outpatient (CLI) | payer OTHER, SELFPAY ==
[2018-08-13 13:28] VITALS: BMI 32.4
--- NOTE | 2019-04-24 17:20 | PM.PFT.1 ---
Pulmonary Function Test Referral & Results Date Patient Seen: 04/16/19 Requesting provider: Twin Rico Results: The spirometry demonstrates an FVC of 4.27 L which is 90% of predicted. The FEV1 was measured at 3.36 L which is 94% of predicted. The FEV1/FVC ratio was 79 which is 104% of predicted. Following the administration of bronchodilator there was no appreciable change. Lung volumes show an SVC of 4.20 L which is 88% of predicted. The diffusing capacity was measured at 29.79 which is 92% of predicted. The maximum voluntary ventilation was normal Interpretation: This study demonstrates probably normal spirometry. The diffusing capacity is also probably normal Compared to PFTs performed in May 2016, spirometry is unchanged, however there is a reduction in diffusing capacity, clinical correlation suggested
== END ==
PROVIDERS: PCP Physician Assistant; Visit Provider Internal Medicine Cardiovascular Disease
DX: R06.02 Shortness of breath (principal)
CPT/HCPCS: 94060; 94726; 94729

== ENCOUNTER → 2019-05-05 07:23 | Outpatient (CLI) | payer OTHER, SELFPAY ==
[2018-08-13 13:28] VITALS: BMI 32.4
--- NOTE | 2019-05-05 | DI.NM.S_ITS ---
PROCEDURE: NM ROSALIA PERF SPECT REST & STR Rest and exercise myocardial perfusion SPECT with gated imaging and ejection fraction RADIOPHARMACEUTICAL: 25.2 mCi Tc-99m sestamibi IV at rest and 24.9 mCi Tc-99m sestamibi IV at peak exercise. A two day-protocol was performed. INDICATIONS: SHORTNESS OF BREATH TECHNIQUE: Radiopharmaceutical was injected at peak stress test, and also at rest. SPECT images were obtained. SPECT myocardial perfusion images were displayed in short axis, horizontal long axis, and vertical long axis views. Gated images were reviewed using Classiqs software. COMPARISON: None. CARDIAC STRESS: A standard Lennox treadmill exercise tolerance test was performed by the patient under the supervision of an attending staff. The patient exercised for 8 minutes and 23 seconds; functional aerobic impairment (MINA) is 0%. Hemodynamic data: There is normal blood pressure and heart rate response to exercise stress. Patient achieved 98% of maximum predicted heart rate at peak exercise. Symptoms: Patient denied chest pain during exercise. EKG: Normal sinus rhythm at rest. No diagnostic EKG changes of ischemia; occasional PACs during recovery. FINDINGS: Raw data: There is good myocardial labeling by radiotracer. No significant motion artifacts. Zuxh-fh-wvena ratio is 0.37 (normal is less than 0.38 for sestamibi tracer, and less than 0.50 for thallium tracer). Left ventricle function: Gated images demonstrate normal left ventricle wall thickening. No segmental wall motion abnormality. No transient ischemic dilation; TID is 1.04 (normal less than 1.3). The left ventricle resting end-diastolic volume is 108 mL. Left ventricle stress ejection fraction is 69%; normal values are above 45%. Myocardial perfusion: There is a mildly intense small area of fixed defect in the basal inferior wall that persists on prone imaging, suggesting prior small infarct. No ischemia. SSS and SRS are both 1. 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 No ischemia. 1) There is a mildly intense small area of fixed defect in the basal inferior wall that persists on prone imaging, suggesting small prior infarct. No ischemia. SSS and SRS are both 1. 2) Normal left ventricular size, wall motion, and systolic function (EF post stress 69%). 3) No ECG evidence of ischemia. 4) No angina during the study. 5) Average exercise capacity (10.1 METs, MINA 0%). Target heart rate achieved (98% of maximum predicted heart rate reached). Appropriate BP response to exercise. 6) No prior nuclear stress test available for comparison. Dictated by: Ryder Chin MD on 05/06/2019 at 12:58 Approved by: Ryder Chin MD on 05/06/2019 at 13:02
--- NOTE | 2019-05-05 08:49 | PM.TREADMILL ---
Cardiac Stress Test Report Referral & Results Date Patient Seen: 05/05/19 Time Patient Seen: 08:30 Requesting provider: Twin Rico Indication: SOB Rest ECG: NSR Procedure Note: Today following both written and verbal informed consent the patient was exercised according to a standard Lennox protocol patient went for a total of 8 minutes 23 seconds achieving a maximum heart rate of 155 maximum systolic blood pressure of 182. This is approximately 10.1 METS. Exercise was terminated at this point because of fatigue. Patient was also given Cardiolite through a previously started Hep-Lock IV by the electrical and instrument technician approximately 1 minute prior to the cessation of exercise. No signs of symptoms of angina. [address] deviations in inferior leads that resolved rapidly with rest. Functional activity impairment approximately 0% on the active scale. Occasional missed beats during recovery. Impression: Low probability for ischemia. Will await perfusion imaging. Please note: Actual ECG tracings can be found in the PACS system.
== END ==
PROVIDERS: PCP Physician Assistant; Visit Provider Internal Medicine Cardiovascular Disease
DX: R06.02 Shortness of breath (principal)
CPT/HCPCS: 78452; 93016; 93017; 93018; A9502

== ENCOUNTER → 2019-05-06 09:12 | Outpatient (CLI) | payer OTHER, SELFPAY ==
[2018-08-13 13:28] VITALS: BMI 32.4
--- NOTE | 2019-05-06 | DI.ECHO.S_ITS ---
[facility] +---------+ [facility] +---------+ : : [id number] : : : : [id number] : : : : Phone: [phone]+ Echocardiogram Report + + :Name: COOPER DUARTE Study Date: 05/06/2019 Height: 70 in : :[facility] Weight: 230 lb : : Gender: Male BSA: 2.2 m2 : :: 1955 Age: 64 yrs BP: 112/70 mmHg: :Reason For Study: SOB : :Ordering Physician: Brittany : :Wale Mir Performed By: Alicia Culver : :Referring: BRITTANY MIR : + + Interpretation Summary The left ventricle is normal in size. The ejection fraction is estimated to be 55-60%. There has been no significant change in LVEF since the previous study. The right ventricle is normal in size and function. No significant valvular pathology. Procedure: A two-dimensional transthoracic echocardiogram with color flow and Doppler was performed. The study quality was technically adequate. Comparison is made with the echocardiogram of 06/10/16. Significant baseline EKG artifacts however mostly rhythm appears to be sinus with sinus bradycardia heart rate in 50s with intermittent PVCs. Left Ventricle: The left ventricle is normal in size. Proximal septal thickening is noted. There is no echo evidence for significant left ventricular outflow tract obstruction. There is no thrombus. The ejection fraction is estimated to be 55-60%. There has been no significant change since the previous study. There are no focal wall motion abnormalities. Diastolic parameters suggest probable normal left ventricular diastolic function and normal filling pressures. Right Ventricle: The right ventricle is normal in size and function. Atria: The left atrium is mildly dilated. The left atrium has mildly increased in size since the prior echo exam. Right atrial size is normal. There is no Doppler evidence for an interatrial shunt. Mitral Valve: The mitral valve is normal. There is trace mitral regurgitation. Aortic Valve: The aortic valve is trileaflet. The aortic valve opens well. The aortic valve is slightly calcified. No aortic regurgitation is present. Tricuspid Valve: The tricuspid valve is normal. There is trace tricuspid regurgitation. The right ventricular systolic pressure is estimated to be at least 26 mmHg based on an estimated right atrial pressure of 8 mm Hg. Pulmonic Valve: The pulmonic valve is not well seen, but is grossly normal. There is trace pulmonic regurgitation. Great Vessels: The aortic root is normal size. The ascending aorta is normal in size. The aortic arch could not be visualized. The pulmonary is not well visualized. The IVC is dilated (diameter is greater than 2.1 cm) yet it collapses greater than 50% with a sniff. This suggests a right atrial pressure of 8 mm Hg. Pericardium/ Pleura There is no pericardial effusion. There is no pleural effusion. MMode/2D Measurements & Calculations LVIDd: 4.6 cm LVOT diam: 2.2 cm LVIDs: 3.0 cm Ao root diam: 3.7 cm FS: 33.5 % asc Aorta Diam: 2.9 cm EPSS: 0.06 cm IVSd: 0.97 cm LVPWd: 0.92 cm LV padilla. diameter/BSA (cm/m^2): 2.1 LV sys. diameter/BSA (cm/m^2): 1.4 LA A2 area: 22.5 cm2 RA long axis: 4.8 cm LA A4 area: 24.5 cm2 RA area: 17.0 cm2 LA length (vol): 5.8 cm RA vol: 50.7 ml LA vol: 81.0 ml RA : 22.9 ml/m2 LA vol index: 36.6 ml/m2 IVC diam: 2.2 cm RVD1 (basal): 4.4 cm RVD2 (mid): 3.3 cm TAPSE: 2.1 cm Doppler Measurements & Calculations Ao V2 max: 106.0 cm/sec LVOT Max Julián: 84.4 cm/sec Ao V2 mean: 73.0 cm/sec LV V1 max P.9 mmHg Ao max P.5 mmHg LV V1 VTI: 20.5 cm Ao mean P.3 mmHg TERRI(I,D): 3.7 cm2 Ao V2 VTI: 21.5 cm TERRI(V,D): 3.1 cm2 sev ratio: 0.96 TERRI indexed to BSA (cm^2/m^2): 1.7 MV E max julián: 67.8 cm/sec TR max julián: 209.5 cm/sec MV A max julián: 37.9 cm/sec TR max P.5 mmHg MV E/A: 1.8 Med Peak E' Julián: 6.4 cm/sec E/E' med: 10.6 Lat Peak E' Julián: 14.7 cm/sec E/E' lat: 4.6 E/e' average: 7.6 MV dec time: 0.13 sec SV(LVOT): 80.3 ml Reading Physician:08:58 AM
== END ==
PROVIDERS: PCP Physician Assistant; Visit Provider Internal Medicine Cardiovascular Disease
DX: R06.02 Shortness of breath (principal)
CPT/HCPCS: 93306

== ENCOUNTER → 2019-11-14 08:00 | Outpatient (CLI) | payer OTHER, SELFPAY ==
[2019-09-10 16:24] VITALS: BMI 32.4
[2019-11-14 08:44] LABS: Hematocrit 45.8 % (41-53); Hemoglobin 16.3 g/dL (13.5-17.5); Mean Corpuscular HGB Conc 35.5 % (30-36); Mean Corpuscular Hemoglobin 31.2 PG (26-34); Mean Corpuscular Volume 87.7 fL (80-100); Platelet Count 189 X10^3/uL (150-400); Red Blood Cell Count 5.22 X10^6/uL (4.5-5.9); Red Cell Distribution Width 13.6 % (11.6-14.8); White Blood Cell Count 6.4 X10^3/uL (4.5-11.0)
[2019-11-14 09:02] LABS: Alanine Aminotransferase 38 IU/L (<50); Albumin 4.4 g/dL (3.5-5.0); Albumin Globulin Ratio 1.4 (1.0-2.8); Alkaline Phosphatase 101 U/L (38-126); Aspartate Aminotransferase 30 IU/L (17-59); BUN Creatinine Ratio 16.4 (6-22); Bilirubin Total 0.8 mg/dL (0.2-1.3); Blood Urea Nitrogen 18 mg/dL (9-20); Calcium 9.7 mg/dL (8.4-10.2); Carbon Dioxide 31 mmol/L (22-32); Chloride 103 mmol/L (98-107); Cholesterol 142 mg/dL (140-199); Estimated Glomerular Filt Rate > 60.0 mL/min (>60); Globulin 3.2 g/dL (1.7-4.1); Glucose 106 mg/dL (80-110); HDL Cholesterol 31 mg/dL (40-60); HEMOLYSIS < 15 (0-50); LDL Cholesterol Calculated 71 mg/dL (<100); Potassium 4.9 mmol/L (3.4-5.1); Sodium 142 mmol/L (137-145); Total Protein 7.6 g/dL (6.3-8.2); Triglycerides 202 mg/dL (35-150)
[2019-11-14 09:29] LABS: Prostate Specific Antigen Scrn 1.11 ng/mL (0.1-4.0)
== END ==
PROVIDERS: PCP Nurse Practitioner Family; Referring Provider Nurse Practitioner Family; Visit Provider Nurse Practitioner Family
DX: Z00.00 Encounter for general adult medical examination without abnormal findings (principal); Z01.812 Encounter for preprocedural laboratory examination; Z13.6 Encounter for screening for cardiovascular disorders; Z12.5 Encounter for screening for malignant neoplasm of prostate
CPT/HCPCS: 36415; 80053; 80061; 85027; G0103

== ENCOUNTER → 2019-11-30 15:18 | Outpatient (CLI) | payer OTHER, SELFPAY ==
[2019-09-10 16:24] VITALS: BMI 32.4
--- NOTE | 2019-11-30 15:20 | DI.CT.S_ITS ---
PROCEDURE: CT ABDOMEN PELVIS W CON INDICATIONS: ongoing left groin pain TECHNIQUE: After the administration of oral and intravenous contrast, 5 mm thick sections acquired from the diaphragms to the symphysis. 5 mm thick coronal and sagittal reformats were performed. For radiation dose reduction, the following was used: automated exposure control, adjustment of mA and/or kV according to patient size. COMPARISON: None. FINDINGS: Image quality: Excellent. ABDOMEN: Lung bases: Lung bases are clear. Heart size is normal. Solid organs: Hepatic steatosis. Presumed small cysts measuring 5 mm in inferior tip below too small character is accurately. Gallbladder not well seen due to partially contracted state. There may be small sub-5 mm gravel like calculi present in the dependent portion versus wall thickening. This could be better assessed with dedicated gallbladder ultrasound. Biliary system is non-dilated. Pancreas enhances normally. Spleen is normal in size and enhancement. No adrenal nodules. Kidneys are normal in size and enhancement, without hydronephrosis. Multiple left renal parapelvic and exophytic cysts, with grossly simple appearance. Peritoneum and bowel: Stomach, small bowel, and colon loops are normal in caliber and wall thickness. No free fluid or air. Normal appendix. Colonic diverticulosis is seen without evidence of acute complication. Nodes and vessels: No retroperitoneal or mesenteric adenopathy. Aorta and inferior vena cava are normal in caliber. Miscellaneous: No ventral hernias. PELVIS: Genitourinary: Bladder wall thickness is normal. Miscellaneous: No inguinal hernias or adenopathy. Bones: No suspicious bony lesions. No vertebral body compression fractures. Lumbar spinal fixation hardware. IMPRESSION: Overall, no acute abnormality. No pathologically enlarged lymphadenopathy. Hepatic steatosis Possible small gravel like calculi within the gallbladder although technically nonspecific and could be better assessed with dedicated ultrasound to exclude mural thickening. Left renal cyst Colonic diverticulosis is seen without evidence of acute complication. Dictated by: Jose Raul Noriega M.D. on 11/30/2019 at 17:06 Approved by: Jose Raul Noriega M.D. on 11/30/2019 at 17:12
== END ==
PROVIDERS: PCP Nurse Practitioner Family; Referring Provider Nurse Practitioner Family; Visit Provider Nurse Practitioner Family
DX: R10.32 Left lower quadrant pain (principal); K76.0 Fatty (change of) liver, not elsewhere classified; N28.1 Cyst of kidney, acquired; K57.90 Diverticulosis of intestine, part unspecified, without perforation or abscess without bleeding
CPT/HCPCS: 74177; Q9967

== ENCOUNTER 2019-12-24 19:48 | Observation (INO) | payer OTHER, SELFPAY ==
[2019-12-22 14:38] VITALS: BMI 32.4
[2019-12-24 20:00] VITALS: BP 141/82; PULSE 124; RESP 24; TEMP 37.2; O2SAT 97; BMI 34.4
--- NOTE | 2019-12-24 20:06 | DI.RAD.S_ITS ---
PROCEDURE: XR CHEST 1V INDICATIONS: chest pain TECHNIQUE: One view of the chest was acquired. COMPARISON: [facility], CR, XR CHEST 2V, 04/14/2019, 9:52. FINDINGS: Surgical changes and devices: None. Lungs and pleura: Lungs are clear. No pleural effusions or pneumothorax. Mediastinum: Mediastinal contours appear normal. Heart size is normal. Bones and chest wall: No suspicious bony lesions. Overlying soft tissues appear unremarkable. IMPRESSION: No evidence acute pulmonary process. Dictated by: Diego Huang M.D. on 12/24/2019 at 20:41 Approved by: Diego Huang M.D. on 12/24/2019 at 20:41
--- NOTE | 2019-12-24 20:20 | ED.CHESTPAIN ---
HPI - Chest Pain General Chief Complaint: Chest Pain Stated Complaint: weakness,heart beat feels fast, jaw hurts Time Seen by Provider: 12/24/19 20:03 Source: patient Mode of arrival: Family Vehicle Limitations: no limitations History of Present Illness HPI narrative: HPI: The patient is a 64-year-old male comes into the emergency department complaining of chest pain. He describes the chest pain as a tight pressure dull and achy which started this morning. It is for over 10 in intensity. It is associated with shortness of breath on exertion. The patient states that if he walks he becomes very tired weak and short of breath. He has had some mild dyspnea on exertion. He has had a similar pain and discomfort in June of 2016 at which time he was admitted to [facility] and was stented for an acute SC. He states that the pain and discomfort is located in the center of his epigastrium and lower chest. It radiated earlier today to his jaw but not to his neck shoulder. He states that he chronically has pain in his shoulder. His arms are weak and tired. The patient does complain of shortness of breath. 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 He denies a history of diabetes mellitus hypertension congestive heart failure COPD or asthma. He admits to a myocardial infarction in the past. He quit smoking cigarettes in 1999. He drinks alcohol only socially. He complains of intermittent sweats but has had no fever chills. He has had a mild headache without any numbness tingling paresthesias and seizures or paresis. He has recently had mild nasal congestion and sinus congestion with a sore throat. He has had minimal cough productive of a minimal sputum just before coming into the emergency department. He denies any vomiting but has had nausea without diarrhea. He has had mild palpitations and is felt dyspnea in lightheaded. He denies any urinary symptoms. Related Data Home Medications Medication Instructions Recorded Confirmed atorvastatin 80 mg tablet 80 mg PO .every other day #90 tab 08/13/19 12/25/19 lisinopril 2.5 mg tablet 2.5 mg PO .every other day #30 tab 08/13/19 12/25/19 metoprolol succinate 25 mg 25 mg PO .every other day tab 08/13/19 12/25/19 tablet,extended release 24 hr Previous Rx's Medication Instructions Recorded hydrocodone 5 mg-acetaminophen 325 1 tab PO DAILY PRN #30 tab 04/14/19 mg tablet tramadol 50 mg tablet 50 mg PO BEDTIME PRN #30 tab 04/14/19 Allergies Allergy/AdvReac Type Severity Reaction Status Date / Time sulfasalazine Allergy Severe Hives, Rash Verified 12/15/19 15:56 Sulfa (Sulfonamide Allergy Intermediate Hives Verified 12/15/19 15:56 Antibiotics) [SULFA (SULFONAMIDE ANTIBIOTICS)] oxycodone AdvReac Severe Blurry Verified 12/15/19 15:56 Vision lactose AdvReac Mild Diarrhea Verified 12/15/19 15:56 Review of Systems Review of Systems Narrative: His review of systems are all negative except for those mentioned in the history of present illness. Patient History Medical History Abnormal barium swallow (Acute ~07/29/18) Atrial fibrillation (Resolved 01/03/15) BMI 34.0-34.9,adult (Acute) BPH (benign prostatic hyperplasia) (Chronic) Chickenpox (Resolved) Coronary artery disease (Chronic) Diverticulosis (Acute 12/2019) Dizziness (Acute) Elevated prostate specific antigen (PSA) (Chronic 05/18/14) Erectile dysfunction (Chronic) Fatigue (Acute) Fatty liver (Acute 12/2019) Gallbladder calculus (Acute 12/2019) Gastroesophageal reflux disease (Chronic) Hx of asbestos exposure (Chronic) Hyperlipidemia (Acute) Hypertension (Chronic) Kidney cyst, acquired (Acute) Liver cyst (Acute 12/2019) Lower urinary tract symptoms (LUTS) (Acute) Lumbar post-laminectomy syndrome (Acute) Measles (Resolved) Mixed hyperlipidemia (Chronic 01/03/15) Mumps (Resolved) Obese (Acute) Obstructive sleep apnea syndrome (Chronic) Osteoarthritis of spine with radiculopathy, lumbar region (Acute) Prostatitis (Acute) PTSD (post-traumatic stress disorder) (Chronic) Sciatica of left side (Acute) Sensation of lump in throat (Acute) Shortness of breath (Acute) Slowing, urinary stream (Acute) Spinal stenosis of lumbar region at multiple levels (Acute) Status post insertion of drug-eluting stent into right coronary artery for coronary artery disease (Resolved) STEMI (ST elevation myocardial infarction) (Resolved 06/2016) Urethral stricture (Acute ~2012) [place] [employer] (Acute) Surgical History H/O hernia repair (Acute ~04/05/16) H/O right coronary artery stent placement (Acute) History of third molar tooth extraction History of tonsillectomy (~1962) Hx of shoulder surgery (Resolved ~07/2015) S/P rotator cuff repair (Acute ~07/13/15) Status post hernia repair Status post transurethral resection of prostate Family History Mother Cancer Social History household members: other Smoking Status: Former smoker Tobacco: How many years used: 25 second hand exposure: No alcohol intake: current substance use type: former substance user Smoking Status: Former smoker alcohol intake frequency: a few times a month Substance Use Type: prescription drug Exam Narrative Exam Narrative: PHYSICAL EXAM: CONSTITUTIONAL: Awake, Alert, Oriented, Coherent, Cooperative very quiet questionablly stoic, reluctant to answer questions stating that you have all my medical records. HEAD: AT/NC EENT: PERRL, FROM of eyes, no discharge, no nystagmus No epistaxis or nasal drainage Oral mucosa is moist and pink, posterior pharynx is without erythema or exudate. NECK: Supple, no obvious JVD, Trachea is midline without stridor, no palpable LN or masses. SPINE: No gross deformity, no palpable tenderness of the cervical, thoracic, lumbar or sacral spine. Minimal mild left costovertebral angle tenderness THORAX: No deformity, retractions, chest wall tenderness, LUNGS: Clear with symmetrical breath sounds without respiratory distress HEART: Normal heart tones, regular rhythm and rate without murmur. ABDOMEN: Soft, mild left anterior flank tenderness, normal bowel sounds without guarding, rebound, rigidity or palpable mass EXTREMITIES: No edema, cyanosis, deformity or tenderness. SKIN: No rash, bruising, petechiae or purpura. NEURO: Awake, alert, oriented, conversive, cranial nerves II-XII are symmetrical and normal, moves all 4 extremities and is ambulatory Initial Vital Signs Initial Vital Signs: Vital Signs Temperature 99 F 12/24/19 20:00 Pulse Rate 124 H 12/24/19 20:00 Respiratory Rate 24 12/24/19 20:00 Blood Pressure 141/82 H 12/24/19 20:00 Pulse Oximetry 97 03/19/20 20:00 Course Course Course Narrative: 2145 the patient chest x-ray reveals no evidence of acute cardiopulmonary process. Patient's white blood count is 17.2 with a hemoglobin of 15.4. Neutrophils is 86.5. Protime is 13.2 seconds with an INR of 1.2 sodium is 135 potassium 4.1 chloride 101 CO2 26 creatinine 0.9 the patient's liver function tests are within normal limits and the troponin is less than 0.012. A repeat troponin will be checked. 2203: I went into the room to inform the patient of his initial laboratory study results. He denied that he had any chest pain at this time or shortness of breath. secured entrance monitor revealed that he continued to have a rapid heart rate, sinus tachycardia at 107-110 despite the medications and 1 L of fluid. His initial troponin was normal. He was informed that we were going to check a 2 hour troponin. He states that he had sweats just as he came into the emergency department but no fever or chills. He remains mildly tender in the left lower quadrant. He denies any diarrhea but states his stools are very soft. His son has a history of Crohn's disease but he does not. He questionably thinks that he may have diverticulosis. 2320 the patient's repeat troponin is less than 0.012. The CT of the patient's chest and abdomen with IV contrast has been completed but the results remain pending at this time. The patient has been informed of these findings. 2341: CT of the patient's chest with IV contrast revealed dependent atelectasis bilaterally without consolidation pleural effusion or pneumothorax. CT of the abdomen without IV contrast revealed 1. No kidney stones or ureteral obstruction. Left renal pelvis cystic changes likely parapelvic cyst versus mild hydronephrosis left kidney lower pole cyst. 2. Moderate stool within the colon otherwise negative bowel. No free air or fluid. 3. No other acute pathology. The kidneys enhance uniformly without solid mass, inferior left kidney 3.5 cm cyst. There is left sided mild hydronephrosis versus a peripelvic cyst. No kidney stones are visible. Ureters are not dilated and without calculus. Bowel/mesentery revealed: Moderate stool within the colon without mass or inflammation. Normal appendix. Small bowel is nondilated, without mural wall thickening. No mesenteric mass or pathological adenopathy. No focal gastric lesion. 0005: Dr. Almanza is being callefd to admit the patient for an Acute Male UTI. The patient's primary care physician is Dr. Nguyen. 0009: Dr. Almanza called and stated that Dr. Terrell Nguyen's patients are admitted to the [facility]. Orders Ordered: ED Orders 12/24/19 20:06 XR chest 1V Stat EKG-12 Lead Stat 12/24/19 20:34 Complete Blood Count AUTO DIFF Stat Comprehensive Metabolic Panel Stat D Dimer Stat Lactate (Lactic Acid) Stat Lipase Stat Partial Thromboplastin Time Stat Prothrombin Time INR Stat Troponin & CK Cardiac Panel Stat 12/24/19 22:20 CT chest abd pel w con Stat 12/24/19 22:40 Troponin I Stat 12/24/19 23:31 Urinalysis and Microscopic Stat Urine Culture Stat Acetaminophen (Tylenol) 650 mg PO Q6HR PRN PRN Reason: Fever/Mild Pain (1-3) Atorvastatin Calcium (Lipitor) 80 mg PO Q48H MJ Enoxaparin Sodium (Lovenox) 40 mg SUBCUT DAILY [facility] Sodium Chloride (Normal Saline 0.45%) 1,000 mls @ 75 mls/hr IV CONT [facility] Last Admin: 12/25/19 02:00 Dose: 75 mls/hr Documented by: ELLIE Ceftriaxone Sodium/Dextrose (Rocephin) 1 gm in 50 mls @ 100 mls/hr IV Q24H [facility] Last Admin: 12/25/19 02:04 Dose: 100 mls/hr Documented by: ELILE Lisinopril (Zestril) 2.5 mg PO Q48H [facility] Metoprolol Succinate (Toprol Xl) 25 mg PO Q48H [facility] Morphine Sulfate (Morphine) 2 mg IV Q6H PRN PRN Reason: Pain, Moderate (4-6) Naloxone HCl (Narcan) 0.2 mg IV Q2MIN PRN PRN Reason: Opiate Reversal Nitroglycerin (Nitrostat) 0.4 mg SL PRN PRN PRN Reason: Chest Pain Ondansetron HCl (Zofran) 4 mg IV Q8HR PRN PRN Reason: Nausea And Vomiting Discontinued Medications Aspirin (Aspirin) 325 mg PO NOW ONE Stop: 12/24/19 20:18 Last Admin: 12/24/19 20:41 Dose: 325 mg Documented by: DION Atorvastatin Calcium (Lipitor) 80 mg PO Q48H [facility] Last Admin: 12/25/19 02:05 Dose: Not Given Documented by: ELLIE Al Hydrox/Mg Hydrox/Simethicone 40 ml/ Lidocaine HCl 15 ml 0 ml PO NOW ONE Stop: 12/24/19 20:19 Last Admin: 12/24/19 20:43 Dose: 55 ml Documented by: DION Sodium Chloride (Normal Saline 0.9%) 1,000 mls @ 1,000 mls/hr IV BOLUS ONE Stop: 12/24/19 23:23 Last Infusion: 12/24/19 23:00 Dose: 0 mls/hr Documented by: Admin: 12/24/19 22:00 Dose: 1,000 mls/hr Documented by: DION Sodium Chloride (Normal Saline 0.9%) 1,000 mls @ 1,000 mls/hr IV BOLUS ONE Stop: 12/24/19 23:24 Last Infusion: 12/25/19 00:00 Dose: 0 mls/hr Documented by: Admin: 12/24/19 23:00 Dose: 1,000 mls/hr Documented by: DION Levofloxacin (Levaquin) 750 mg in 150 mls @ 100 mls/hr IV NOW ONE Stop: 12/25/19 01:32 Last Infusion: 12/25/19 01:15 Dose: 0 mls/hr Documented by: Admin: 12/25/19 00:08 Dose: 100 mls/hr Documented by: DION Lisinopril (Zestril) 2.5 mg PO Q48H [facility] Last Admin: 12/25/19 02:10 Dose: Not Given Documented by: ELLIE Metoprolol Succinate (Toprol Xl) 25 mg PO Q48H [facility] Last Admin: 12/25/19 02:10 Dose: Not Given Documented by: ELLIE Morphine Sulfate (Morphine) 4 mg IV NOW ONE Stop: 12/24/19 20:19 Last Admin: 12/24/19 20:42 Dose: 4 mg Documented by: DION Nitroglycerin (Nitro-Bid) 1 inch TOP NOW ONE Stop: 12/24/19 20:18 Last Admin: 12/24/19 20:42 Dose: 1 inch Documented by: DION Ondansetron HCl (Zofran) 4 mg IV NOW ONE Stop: 12/24/19 20:19 Last Admin: 12/24/19 20:42 Dose: 4 mg Documented by: DION Vital Signs Vital signs: Vital Signs - 8 hr 12/24/19 20:00 12/24/19 20:42 12/24/19 21:18 Temperature 99 F Pulse Rate 124 H 123 H 101 H Respiratory Rate 24 17 Blood Pressure 141/82 H 133/75 Blood Pressure [Right Arm] 110/62 Pulse Oximetry 97 96 12/24/19 23:00 12/25/19 00:30 Temperature Pulse Rate 102 H 84 Respiratory Rate 17 20 Blood Pressure Blood Pressure [Right Arm] 98/55 L 102/57 L Pulse Oximetry 93 96 MDM - Chest Pain Lab Data Result diagrams: 12/24/19 20:34 12/24/19 20:34 Labs: Lab Results 12/24/19 12/24/19 12/24/19 Range/Units 20:34 20:34 20:34 WBC 17.2 H (4.5-11.0) X10^3/uL RBC 4.98 (4.5-5.9) X10^6/uL Hgb 15.4 (13.5-17.5) g/dL Hct 43.2 (41-53) % MCV 86.8 (80-100) fL MCH 30.8 (26-34) PG MCHC 35.5 (30-36) % RDW 13.4 (11.6-14.8) % Plt Count 175 (150-400) X10^3/uL Neut % (Auto) 86.5 H (50-75) % Lymph % (Auto) 4.7 L (25-40) % [place] % (Auto) 8.0 (3-14) % Eos % (Auto) 0.3 L (2-4) % Baso % (Auto) 0.5 (0-2) % Neut # (Auto) 51837 H (2004-5031) /uL Lymph # (Auto) 800 L (5254-0314) /uL [place] # (Auto) 1400 H (0-900) /uL Eos # (Auto) 100 (0-450) /uL Baso # (Auto) 100 (0-100) /uL PT 13.2 H (10.1-12.7) SECONDS INR 1.2 (0.9-1.3) APTT 33 (26.4-36.2) SECONDS D-Dimer (<230) ng/mL Sodium 135 L (137-145) mmol/L Potassium 4.1 (3.4-5.1) mmol/L Chloride 101 (98-107) mmol/L Carbon Dioxide 26 (22-32) mmol/L BUN 13 (9-20) mg/dL Creatinine 0.90 (0.66-1.25) mg/dL Estimated GFR > 60.0 (>60) mL/min BUN/Creatinine Ratio 14.4 (6-22) Glucose 115 H (80-110) mg/dL Lactate (0.7-2.1) mmol/L Calcium 9.7 (8.4-10.2) mg/dL Total Bilirubin 1.1 (0.2-1.3) mg/dL AST 29 (17-59) IU/L ALT 35 (<50) IU/L Alkaline Phosphatase 90 (38-126) U/L Total Creatine Kinase 71 (55-170) U/L CK-MB (CK-2) TNP CK-MB (CK-2) Rel Index TNP Troponin I < 0.012 (0.01-0.034) ng/mL Total Protein 7.7 (6.3-8.2) g/dL Albumin 4.5 (3.5-5.0) g/dL Globulin 3.2 (1.7-4.1) g/dL Albumin/Globulin Ratio 1.4 (1.0-2.8) Lipase 50 (23-300) U/L Urine Color Urine Appearance Urine pH (4.5-8.0) Ur Specific [place] (1.000-1.035) Urine Protein (Negative) Urine Glucose (UA) (Negative) g/dL Urine Ketones (NEGATIVE) Urine Occult Blood (Negative) Urine Nitrate (Negative) Urine Bilirubin (NEGATIVE) Urine Urobilinogen (0.2) E.U./dL Ur Leukocyte Esterase (NEGATIVE) Urine RBC (0-5/HPF) Urine WBC (0-5/HPF) Urine Bacteria (None) Ur Culture Indicated? 12/24/19 12/24/19 12/24/19 Range/Units 20:34 20:34 22:40 WBC (4.5-11.0) X10^3/uL RBC (4.5-5.9) X10^6/uL Hgb (13.5-17.5) g/dL Hct (41-53) % MCV (80-100) fL MCH (26-34) PG MCHC (30-36) % RDW (11.6-14.8) % Plt Count (150-400) X10^3/uL Neut % (Auto) (50-75) % Lymph % (Auto) (25-40) % [place] % (Auto) (3-14) % Eos % (Auto) (2-4) % Baso % (Auto) (0-2) % Neut # (Auto) (4105-1143) /uL Lymph # (Auto) (5866-6462) /uL [place] # (Auto) (0-900) /uL Eos # (Auto) (0-450) /uL Baso # (Auto) (0-100) /uL PT (10.1-12.7) SECONDS INR (0.9-1.3) APTT (26.4-36.2) SECONDS D-Dimer < 200 (<230) ng/mL Sodium (137-145) mmol/L Potassium (3.4-5.1) mmol/L Chloride (98-107) mmol/L Carbon Dioxide (22-32) mmol/L BUN (9-20) mg/dL Creatinine (0.66-1.25) mg/dL Estimated GFR (>60) mL/min BUN/Creatinine Ratio (6-22) Glucose (80-110) mg/dL Lactate 1.3 (0.7-2.1) mmol/L Calcium (8.4-10.2) mg/dL Total Bilirubin (0.2-1.3) mg/dL AST (17-59) IU/L ALT (<50) IU/L Alkaline Phosphatase (38-126) U/L Total Creatine Kinase (55-170) U/L CK-MB (CK-2) CK-MB (CK-2) Rel Index Troponin I < 0.012 (0.01-0.034) ng/mL Total Protein (6.3-8.2) g/dL Albumin (3.5-5.0) g/dL Globulin (1.7-4.1) g/dL Albumin/Globulin Ratio (1.0-2.8) Lipase (23-300) U/L Urine Color Urine Appearance Urine pH (4.5-8.0) Ur Specific [place] (1.000-1.035) Urine Protein (Negative) Urine Glucose (UA) (Negative) g/dL Urine Ketones (NEGATIVE) Urine Occult Blood (Negative) Urine Nitrate (Negative) Urine Bilirubin (NEGATIVE) Urine Urobilinogen (0.2) E.U./dL Ur Leukocyte Esterase (NEGATIVE) Urine RBC (0-5/HPF) Urine WBC (0-5/HPF) Urine Bacteria (None) Ur Culture Indicated? 12/24/19 Range/Units 23:31 WBC (4.5-11.0) X10^3/uL RBC (4.5-5.9) X10^6/uL Hgb (13.5-17.5) g/dL Hct (41-53) % MCV (80-100) fL MCH (26-34) PG MCHC (30-36) % RDW (11.6-14.8) % Plt Count (150-400) X10^3/uL Neut % (Auto) (50-75) % Lymph % (Auto) (25-40) % [place] % (Auto) (3-14) % Eos % (Auto) (2-4) % Baso % (Auto) (0-2) % Neut # (Auto) (9381-2121) /uL Lymph # (Auto) (4978-9510) /uL [place] # (Auto) (0-900) /uL Eos # (Auto) (0-450) /uL Baso # (Auto) (0-100) /uL PT (10.1-12.7) SECONDS INR (0.9-1.3) APTT (26.4-36.2) SECONDS D-Dimer (<230) ng/mL Sodium (137-145) mmol/L Potassium (3.4-5.1) mmol/L Chloride (98-107) mmol/L Carbon Dioxide (22-32) mmol/L BUN (9-20) mg/dL Creatinine (0.66-1.25) mg/dL Estimated GFR (>60) mL/min BUN/Creatinine Ratio (6-22) Glucose (80-110) mg/dL Lactate (0.7-2.1) mmol/L Calcium (8.4-10.2) mg/dL Total Bilirubin (0.2-1.3) mg/dL AST (17-59) IU/L ALT (<50) IU/L Alkaline Phosphatase (38-126) U/L Total Creatine Kinase (55-170) U/L CK-MB (CK-2) CK-MB (CK-2) Rel Index Troponin I (0.01-0.034) ng/mL Total Protein (6.3-8.2) g/dL Albumin (3.5-5.0) g/dL Globulin (1.7-4.1) g/dL Albumin/Globulin Ratio (1.0-2.8) Lipase (23-300) U/L Urine Color Yellow Urine Appearance Slightly cloudy Urine pH 7.5 (4.5-8.0) Ur Specific [place] 1.010 (1.000-1.035) Urine Protein Trace H (Negative) Urine Glucose (UA) Negative (Negative) g/dL Urine Ketones Negative (NEGATIVE) Urine Occult Blood Negative (Negative) Urine Nitrate Positive (Negative) Urine Bilirubin Negative (NEGATIVE) Urine Urobilinogen 0.2 (0.2) E.U./dL Ur Leukocyte Esterase 2+ H (NEGATIVE) Urine RBC None seen (0-5/HPF) Urine WBC 5-10/hpf H (0-5/HPF) Urine Bacteria Many (>30) H (None) Ur Culture Indicated? Specimen cultured Urine Dip Bedside Urine Glucose Negative Bedside Urine Bilirubin - Negative Bedside Urine Ketone +/- 5 Urine Specific [place] 1.010 Bedside Urine Occult Blood +/- Bedside Urine pH 7.5 Bedside Urine Protein +/- 15 Bedside Urine Urobilinogen - Negative Bedside Urine Nitrite + Positive Bedside Urine Leukocytes +++ 500 Esterase ECG Data Attestation: I personally reviewed and interpreted this ECG as follows: Interpretation: The patient's EKG obtained on December 23 at 20: 12:20 a.m. reveals sinus tachycardia with a ventricular rate of 119 intervals are normal QTC is normal normal axis. The patient has flat T-waves in leads III and AVF. The patient has a Q-wave in III. There are no other inverted T-waves or acute diagnostic ST or T-wave changes noted throughout the EKG. There is no signs of any injury. Discharge Plan Departure Patient Disposition: Admitted As Inpatient Clinical Impression: Acute left flank pain, Sinus tachycardia Chest pain Qualifiers: Chest pain type: unspecified Qualified Code(s): R07.9 - Chest pain, unspecified Leukocytosis Qualifiers: Leukocytosis type: bandemia Qualified Code(s): D72.825 - Bandemia Urinary tract infection Qualifiers: Urinary tract infection type: site unspecified Hematuria presence: with hematuria Qualified Code(s): N39.0 - Urinary tract infection, site not specified Discharge Date/Time: 12/25/19 01:33 Referrals: Doe Nguyen ARNP [Primary Care Provider] - Admit Date/Time: 12/25/19 00:40 Admit Provider: Graciela Noriega ED Sign-out Cosign ED Attending Cosignature Attestation: I was immediately available in the department for consultation. This documentation has been reviewed and I agree with assessment and plan. Supervised by Reuben Mata MD
[2019-12-24] MEDS: ASPIRIN 325 MG TABLET PO (20:41)
[2019-12-24 20:42] VITALS: BP 133/75; PULSE 123
[2019-12-24] MEDS: NITROGLYCERIN OINT 1 INCH/GM OINT...G. TOP (20:42)
[2019-12-24] MEDS: ONDANSETRON 4 MG/2 ML INJ IV (20:42)
[2019-12-24] MEDS: MORPHINE 4 MG/ML INJ IV (20:42)
[2019-12-24] MEDS: MAG HYDROX/ALUMINUM/SIMETH SUS 40 ML, LIDOCAINE VISCOUS 2% 15 ML PO (20:43)
[2019-12-24 20:45] LABS: Add Manual Diff / Slide Review NO; Basophils Absolute Auto 100 /uL (0-100); Basophils Percent Auto 0.5 % (0-2); Eosinophils Absolute Auto 100 /uL (0-450); Eosinophils Percent Auto 0.3 % (2-4); Hematocrit 43.2 % (41-53); Hemoglobin 15.4 g/dL (13.5-17.5); Lymphocytes Absolute Auto 800 /uL (1100-4500); Lymphocytes Percent Auto 4.7 % (25-40); Mean Corpuscular HGB Conc 35.5 % (30-36); Mean Corpuscular Hemoglobin 30.8 PG (26-34); Mean Corpuscular Volume 86.8 fL (80-100); Monocytes Absolute Auto 1400 /uL (0-900); Neutrophils Absolute Auto 14800 /uL (1500-7000); Neutrophils Percent Auto 86.5 % (50-75); Platelet Count 175 X10^3/uL (150-400); Red Blood Cell Count 4.98 X10^6/uL (4.5-5.9); Red Cell Distribution Width 13.4 % (11.6-14.8); White Blood Cell Count 17.2 X10^3/uL (4.5-11.0)
[2019-12-24 20:53] LABS: INR 1.2 (0.9-1.3); Prothrombin Time 13.2 SECONDS (10.1-12.7)
[2019-12-24 20:55] LABS: PTT Partial Thromboplastin Tim 33 SECONDS (26.4-36.2)
[2019-12-24 20:58] LABS: Alanine Aminotransferase 35 IU/L (<50); Albumin 4.5 g/dL (3.5-5.0); Albumin Globulin Ratio 1.4 (1.0-2.8); Alkaline Phosphatase 90 U/L (38-126); Aspartate Aminotransferase 29 IU/L (17-59); BUN Creatinine Ratio 14.4 (6-22); Bilirubin Total 1.1 mg/dL (0.2-1.3); Blood Urea Nitrogen 13 mg/dL (9-20); Calcium 9.7 mg/dL (8.4-10.2); Carbon Dioxide 26 mmol/L (22-32); Chloride 101 mmol/L (98-107); Creatine Kinase 71 U/L (55-170); Estimated Glomerular Filt Rate > 60.0 mL/min (>60); Globulin 3.2 g/dL (1.7-4.1); Glucose 115 mg/dL (80-110); HEMOLYSIS < 15 (0-50); Lipase 50 U/L (23-300); Potassium 4.1 mmol/L (3.4-5.1); Sodium 135 mmol/L (137-145); Total Protein 7.7 g/dL (6.3-8.2)
[2019-12-24 21:09] LABS: Troponin I < 0.012 ng/mL (0.01-0.034)
--- NOTE | 2019-12-24 21:09 | PC.NURSE ---
Pt reports distress light headed, hot s/p nitro administration. BP 85/51. IV NS bolus administered, Pt ifeanyi flat, O2 1 L applied via nasal cannula.
[2019-12-24 21:18] VITALS: BP 110/62; PULSE 101; RESP 17; O2SAT 96
[2019-12-24] MEDS: SODIUM CHLORIDE 0.9% 1,000 ML 1000 ML IV ×2 (22:00→23:00)
[2019-12-24 22:03] LABS: Lactate (Lactic Acid) 1.3 mmol/L (0.7-2.1)
[2019-12-24 22:09] LABS: D Dimer < 200 ng/mL (<230)
--- NOTE | 2019-12-24 22:20 | DI.CT.S_ITS ---
PROCEDURE: CT CHEST ABD PEL W CON INDICATIONS: left flank tenderness, sinus tachycardia, elevated White cell count TECHNIQUE: After the administration of intravenous contrast, 5 mm thick sections acquired from the lung apices to the symphysis. 5 mm coronal and sagittal reformats were performed, with additional 7 mm MIP reformats through the lungs. For radiation dose reduction, the following was used: automated exposure control, adjustment of mA and/or kV according to patient size. COMPARISON: CT ABDOMEN PELVIS W CON, 11/30/2019, 16:06. FINDINGS: Image quality: Excellent. CHEST: Lungs and pleura: Mild bibasilar dependent atelectasis. No pleural effusions or pneumothorax. Central and peripheral airways appear patent and normal in caliber. Mediastinum: Heart size is normal. No pericardial effusion. No mediastinal or hilar adenopathy by size criteria. Thoracic aorta and central pulmonary arteries are normal in size. Esophagus is normal in caliber. No hiatal hernia. Chest wall: No axillary or supraclavicular adenopathy by size criteria. Thyroid gland is unremarkable. ABDOMEN: Solid organs: Liver is normal in size and enhancement. Gallbladder contains mild gravel-like gallstones. No gallbladder wall thickening or fluid around the gallbladder. Biliary system is non dilated. Pancreas enhances normally. Spleen is normal in size and enhancement. No adrenal nodules. Kidneys demonstrate normal size and enhancement, without hydronephrosis. Left renal peripelvic cysts. Left lower pole renal exophytic cyst. Peritoneum and bowel: Bowel loops demonstrate normal wall thickness and caliber. No free fluid or air. Nodes and vessels: No retroperitoneal or mesenteric adenopathy by size criteria. Aorta and inferior vena cava are normal in size. Miscellaneous: No ventral hernias. PELVIS: Genitourinary: Bladder wall thickness is normal. Miscellaneous: No inguinal hernias or adenopathy. Bones: No suspicious bony lesions. No vertebral body compression fractures. Remote L5-S1 fusion. IMPRESSION: 1. Mild bibasilar atelectasis. 2. Otherwise unremarkable chest CT. 3. Gravel-like stones in the gallbladder. No evidence of gallbladder acute inflammation. 4. There are no stones, ureteral stone, or hydronephrosis. 5. No evidence acute abdominal process. Comment: Final report is concordant with preliminary interpretation provided by [facility]. Dictated by: Diego Huang M.D. on 12/25/2019 at 7:29 Approved by: Diego Huang M.D. on 12/25/2019 at 7:35
[2019-12-24 23:00] VITALS: BP 98/55; PULSE 102; RESP 17; O2SAT 93
[2019-12-24 23:09] LABS: Troponin I < 0.012 ng/mL (0.01-0.034)
[2019-12-24 23:49] LABS: RBC Urine None Seen (0-5/HPF)
[2019-12-24 23:50] LABS: Bilirubin Urine UA NEGATIVE (NEGATIVE); Color Urine UA YELLOW; Glucose Urine UA NEGATIVE (Negative); Ketones Urine UA NEGATIVE (NEGATIVE); Leukocyte Esterase Urine UA 2+ (NEGATIVE); Nitrite Urine UA POSITIVE (Negative); Occult Blood Urine UA NEGATIVE (Negative); Protein Urine UA TRACE (Negative); Urobilinogen Urine UA 0.2 E.U./dL (0.2); pH Urine UA 7.5 (4.5-8.0)
[2019-12-24 23:56] LABS: Appearance Urine UA Slightly Cloudy; Bacteria Urine Many (>30); WBC Urine 5-10/HPF (0-5/HPF)
[2019-12-24 23:57] LABS: Culture Indicated Urine Specimen Cultured
[2019-12-25] MEDS: levoFLOXacin 750 MG/150 ML PIGGYBACK 100 MG IV (00:08)
[2019-12-25 00:30] VITALS: BP 102/57; PULSE 84; RESP 20; O2SAT 96
[2019-12-25 01:20] VITALS: BP 127/74; PULSE 88; RESP 18; TEMP 37; O2SAT 98
--- NOTE | 2019-12-25 01:37 | PM.HP.1 ---
History of Present Illness History of Present Illness Date Patient Seen: 12/25/19 Time Patient Seen: 00:30 Chief complaint: weakness,heart beat feels fast, jaw hurts Narrative: Reuben Maciel is a 64-year-old male with a history of stent placement in 2017, TURP, coronary artery disease and hyperlipidemia presents with chest pain tonight. Patient stated he had chest pain he was weak it radiated to his arm and neck. He had had a prior heart attack and 2017 and at that time this felt similar however he did have jaw pain. Of him in the emergency department they found that his EKG was normal troponins are both normal Um and he did have some point tenderness in his left lower back on Um. At that point the ED provider are reviewed his labs [place] [address] and a heart rate of 119. He performed a urinalysis which indicated that the patient had a urinary tract infection. Patient's review of systems are positive for having headache prior to admission Um blurred vision due to using tramadol for pain, he does have mild dental pain due to being in a transitional waiting period for to complete his left sided root canal, he did have palpitations when he had chest pain which is now resolved. He had shortness of breath he has been having a difficult time just ambulating and moving around. He had nausea but no abdominal pain he did endorse having soft stools. He states that he has numbing and tingling all over his body including legs and arms. Denies easy bruising or bleeding. Denies dysuria. Patient's saw his dentist today and was given oral Keflex for his pending root canal. It is suspected that he may be co-infected with both a dental infection as well a UTI. 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 Patient History Medical History Abnormal barium swallow (Acute ~07/29/18) Atrial fibrillation (Resolved 01/03/15) BMI 34.0-34.9,adult (Acute) BPH (benign prostatic hyperplasia) (Chronic) Chickenpox (Resolved) Coronary artery disease (Chronic) Diverticulosis (Acute 12/2019) Dizziness (Acute) Elevated prostate specific antigen (PSA) (Chronic 05/18/14) Erectile dysfunction (Chronic) Fatigue (Acute) Fatty liver (Acute 12/2019) Gallbladder calculus (Acute 12/2019) Gastroesophageal reflux disease (Chronic) Hx of asbestos exposure (Chronic) Hyperlipidemia (Acute) Hypertension (Chronic) Kidney cyst, acquired (Acute) Liver cyst (Acute 12/2019) Lower urinary tract symptoms (LUTS) (Acute) Lumbar post-laminectomy syndrome (Acute) Measles (Resolved) Mixed hyperlipidemia (Chronic 01/03/15) Mumps (Resolved) Obese (Acute) Obstructive sleep apnea syndrome (Chronic) Osteoarthritis of spine with radiculopathy, lumbar region (Acute) Prostatitis (Acute) PTSD (post-traumatic stress disorder) (Chronic) Sciatica of left side (Acute) Sensation of lump in throat (Acute) Shortness of breath (Acute) Slowing, urinary stream (Acute) Spinal stenosis of lumbar region at multiple levels (Acute) Status post insertion of drug-eluting stent into right coronary artery for coronary artery disease (Resolved) STEMI (ST elevation myocardial infarction) (Resolved 06/2016) 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 (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) Surgical History H/O hernia repair (Acute ~04/05/16) H/O right coronary artery stent placement (Acute) History of third molar tooth extraction History of tonsillectomy (~1962) Hx of shoulder surgery (Resolved ~07/2015) S/P rotator cuff repair (Acute ~07/13/15) Status post hernia repair Status post transurethral resection of prostate Family & Social History Family History Mother Cancer Social History: household members other Safety & Behavioral: Feels Safe in Current Yes Environment Tobacco & Substance use: Smoking Status Former smoker alcohol intake current alcohol intake frequency a few times a month Substance Use Type prescription drug Meds Home Medications and Allergies Home Medications Medication Instructions Recorded Confirmed Type hydrocodone 5 mg-acetaminophen 325 1 tab PO DAILY PRN #30 tab 04/14/19 12/15/19 Rx mg tablet tramadol 50 mg tablet 50 mg PO BEDTIME PRN #30 tab 04/14/19 12/15/19 Rx atorvastatin 80 mg tablet 80 mg PO .every other day #90 tab 08/13/19 12/15/19 History lisinopril 2.5 mg tablet 2.5 mg PO .every other day #30 tab 08/13/19 12/15/19 History metoprolol succinate 25 mg 25 mg PO .every other day tab 08/13/19 12/15/19 History tablet,extended release 24 hr Allergies Allergy/AdvReac Type Severity Reaction Status Date / Time sulfasalazine Allergy Severe Hives, Rash Verified 12/15/19 15:56 Sulfa (Sulfonamide Allergy Intermediate Hives Verified 12/15/19 15:56 Antibiotics) [SULFA (SULFONAMIDE ANTIBIOTICS)] oxycodone AdvReac Severe Blurry Verified 12/15/19 15:56 Vision lactose AdvReac Mild Diarrhea Verified 12/15/19 15:56 Review of Systems Review of Systems ROS: Yes All systems reviewed with the patient and are negative except as otherwise documented Exam Vital Signs (past 8 hours): - 12/24/19 20:00 12/24/19 20:42 12/24/19 21:18 Temperature 99 F Pulse Rate 124 H 123 H 101 H Respiratory Rate 24 17 Blood Pressure 141/82 H 133/75 Blood Pressure [Right Arm] 110/62 Pulse Oximetry 97 96 12/24/19 23:00 12/25/19 00:30 Temperature Pulse Rate 102 H 84 Respiratory Rate 17 20 Blood Pressure Blood Pressure [Right Arm] 98/55 L 102/57 L Pulse Oximetry 93 96 Oxygen Delivery Method Room Air Oxygen Flow Rate 1 Narrative Exam Narrative: Gen: Alert, oriented, well-developed 64 y.o. male, appears to be slightly annoying HEENT: normocephalic, atraumatic, conjunctiva clear, sclera non-icteric, oral mucosa pink and moist Neck: supple, full ROM, no JVD Resp: Lungs CTA, non-labored breathing CV: RRR, no murmur or rubs Abd: Point tenderness in the lower left flank, soft, non-tender, normoactive BTs Skin: no lesions or rashes, dry and intact Neuro: Alert and oriented X 4 w/no focal deficits Extremities: moves all 4 extremities, is ambulatory, negative Rocky?s sign Psyche: normal mood and affect. Objective Labs Result Diagrams: 12/24/19 20:34 12/24/19 20:34 Labs: Laboratory Results - last 24 hr 12/24/19 12/24/19 12/24/19 20:34 20:34 20:34 WBC 17.2 H RBC 4.98 Hgb 15.4 Hct 43.2 MCV 86.8 MCH 30.8 MCHC 35.5 RDW 13.4 Plt Count 175 Neut % (Auto) 86.5 H Lymph % (Auto) 4.7 L [place] % (Auto) 8.0 Eos % (Auto) 0.3 L Baso % (Auto) 0.5 Neut # (Auto) 20989 H Lymph # (Auto) 800 L [place] # (Auto) 1400 H Eos # (Auto) 100 Baso # (Auto) 100 PT 13.2 H INR 1.2 APTT 33 D-Dimer Sodium 135 L Potassium 4.1 Chloride 101 Carbon Dioxide 26 BUN 13 Creatinine 0.90 Estimated GFR > 60.0 BUN/Creatinine Ratio 14.4 Glucose 115 H Lactate Calcium 9.7 Total Bilirubin 1.1 AST 29 ALT 35 Alkaline Phosphatase 90 Total Creatine Kinase 71 CK-MB (CK-2) TNP CK-MB (CK-2) Rel Index TNP Troponin I < 0.012 Total Protein 7.7 Albumin 4.5 Globulin 3.2 Albumin/Globulin Ratio 1.4 Lipase 50 Urine Color Urine Appearance Urine pH Ur Specific [place] Urine Protein Urine Glucose (UA) Urine Ketones Urine Occult Blood Urine Nitrate Urine Bilirubin Urine Urobilinogen Ur Leukocyte Esterase Urine RBC Urine WBC Urine Bacteria Ur Culture Indicated? 12/24/19 12/24/19 12/24/19 20:34 20:34 22:40 WBC RBC Hgb Hct MCV MCH MCHC RDW Plt Count Neut % (Auto) Lymph % (Auto) [place] % (Auto) Eos % (Auto) Baso % (Auto) Neut # (Auto) Lymph # (Auto) [place] # (Auto) Eos # (Auto) Baso # (Auto) PT INR APTT D-Dimer < 200 Sodium Potassium Chloride Carbon Dioxide BUN Creatinine Estimated GFR BUN/Creatinine Ratio Glucose Lactate 1.3 Calcium Total Bilirubin AST ALT Alkaline Phosphatase Total Creatine Kinase CK-MB (CK-2) CK-MB (CK-2) Rel Index Troponin I < 0.012 Total Protein Albumin Globulin Albumin/Globulin Ratio Lipase Urine Color Urine Appearance Urine pH Ur Specific [place] Urine Protein Urine Glucose (UA) Urine Ketones Urine Occult Blood Urine Nitrate Urine Bilirubin Urine Urobilinogen Ur Leukocyte Esterase Urine RBC Urine WBC Urine Bacteria Ur Culture Indicated? 12/24/19 23:31 WBC RBC Hgb Hct MCV MCH MCHC RDW Plt Count Neut % (Auto) Lymph % (Auto) [place] % (Auto) Eos % (Auto) Baso % (Auto) Neut # (Auto) Lymph # (Auto) [place] # (Auto) Eos # (Auto) Baso # (Auto) PT INR APTT D-Dimer Sodium Potassium Chloride Carbon Dioxide BUN Creatinine Estimated GFR BUN/Creatinine Ratio Glucose Lactate Calcium Total Bilirubin AST ALT Alkaline Phosphatase Total Creatine Kinase CK-MB (CK-2) CK-MB (CK-2) Rel Index Troponin I Total Protein Albumin Globulin Albumin/Globulin Ratio Lipase Urine Color Yellow Urine Appearance Slightly cloudy Urine pH 7.5 Ur Specific [place] 1.010 Urine Protein Trace H Urine Glucose (UA) Negative Urine Ketones Negative Urine Occult Blood Negative Urine Nitrate Positive Urine Bilirubin Negative Urine Urobilinogen 0.2 Ur Leukocyte Esterase 2+ H Urine RBC None seen Urine WBC 5-10/hpf H Urine Bacteria Many (>30) H Ur Culture Indicated? Specimen cultured Assessment & Plan Assessment & Plan narrative: Reuben Maciel will be admitted as an inpatient for further evaluation the source of his infection. 1. Bacterial infection, acute, present on admission -likely co-infection urinary tract infection and dental infection of the left jaw -urine cultures are pending -patient is started on ceftriaxone 1 g IV daily -we will hold his Keflex 2. Chest pain, acute, present on admission -1st 2 troponins are negative -patient has coronary artery disease -patient had a PCI in 2017 with stents placed -he takes lisinopril 2.5 mg p.o. every other day alternating with metoprolol tartrate 25 mg p.o. every other day -telemetry times 24 hours -he is written for nitroglycerin for chest pain however he states that morphine helps better 3. Hyperlipidemia, chronic -takes atorvastatin 80 mg p.o. daily and will continue that 4. Shortness of breath, exertional, acute, present on admission -I will order respiratory panel -procalcitonin is pending FEN: Normal saline at 75 mL/hour, low-sodium diet, chemistries in the am Patient is placed into observation as his stay is not likely to exceed 2 midnights. VTE Prophylaxis: Bilateral SCDs, enoxaparin 40 mg subcu daily Medications reconciled: Yes Disposition: Probable discharge home Code Status: Full code
[2019-12-25 01:38] VITALS: BMI 32.8
[2019-12-25] MEDS: SODIUM CHLORIDE 0.45% 1,000 ML 75 ML IV (02:00)
[2019-12-25] MEDS: CEFTRIAXONE 1 GM/50 ML FROZ.PIGGY IV (02:04)
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
[2019-12-25 04:23] LABS: Adenovirus Not Detected (Not Detect); Coronavirus 229E Not Detected (Not Detect)
[2019-12-25 04:24] LABS: Bordetella pertussis Not Detected (Not Detect); Chlamydophila pneumoniae Not Detected (Not Detect); Coronavirus HKU1 Not Detected (Not Detect); Coronavirus NL 63 Not Detected (Not Detect); Coronavirus OC43 Not Detected (Not Detect); Human Metapneumovirus Not Detected (Not Detect); Human Rhinovirus/Enterovirus Not Detected (Not Detect); Influenza A Not Detected (Not Detect); Influenza B Not Detected (Not Detect); Mycoplasma pneumoniae Not Detected (Not Detect); Parainfluenza Virus 1 Not Detected (Not Detect); Parainfluenza Virus 2 Not Detected (Not Detect); Parainfluenza Virus 3 Not Detected (Not Detect); Parainfluenza Virus 4 Not Detected (Not Detect); Respiratory Syncytial Virus Not Detected (Not Detect)
[2019-12-25 04:48] VITALS: BP 98/47; PULSE 102; RESP 18; TEMP 37; O2SAT 93
[2019-12-25 05:44] LABS: Add Manual Diff / Slide Review NO; Basophils Absolute Auto 0 /uL (0-100); Basophils Percent Auto 0.1 % (0-2); Eosinophils Absolute Auto 0 /uL (0-450); Eosinophils Percent Auto 0.1 % (2-4); Hematocrit 39.6 % (41-53); Hemoglobin 13.7 g/dL (13.5-17.5); Lymphocytes Absolute Auto 500 /uL (1100-4500); Lymphocytes Percent Auto 3.3 % (25-40); Mean Corpuscular HGB Conc 34.7 % (30-36); Mean Corpuscular Hemoglobin 30.5 PG (26-34); Monocytes Absolute Auto 1800 /uL (0-900); Monocytes Percent Auto 10.6 % (3-14); Neutrophils Absolute Auto 14500 /uL (1500-7000); Neutrophils Percent Auto 85.9 % (50-75); Platelet Count 161 X10^3/uL (150-400); Red Cell Distribution Width 13.3 % (11.6-14.8); White Blood Cell Count 16.8 X10^3/uL (4.5-11.0)
[2019-12-25 06:11] LABS: BUN Creatinine Ratio 13.1 (6-22); Blood Urea Nitrogen 13 mg/dL (9-20); Calcium 8.8 mg/dL (8.4-10.2); Carbon Dioxide 27 mmol/L (22-32); Chloride 102 mmol/L (98-107); Estimated Glomerular Filt Rate > 60.0 mL/min (>60); Glucose 119 mg/dL (80-110); HEMOLYSIS < 15 (0-50); Potassium 4.2 mmol/L (3.4-5.1); Sodium 135 mmol/L (137-145)
[2019-12-25 07:50] VITALS: O2SAT 94
[2019-12-25 08:30] VITALS: BP 103/65; PULSE 91; RESP 18; TEMP 37.2; O2SAT 97
[2019-12-25] MEDS: ACETAMINOPHEN 325 MG TABLET 650 MG PO (10:49)
--- NOTE | 2019-12-25 10:52 | P.DS_ITS ---
History of Present Illness History of Present Illness Date Patient Seen: 12/25/19 Time Patient Seen: 10:52 Chief complaint: weakness,heart beat feels fast, jaw hurts Narrative: Reuben Maciel is a 64-year-old male with a history of stent placement in 2017, TURP, coronary artery disease and hyperlipidemia presents with chest pain tonight. Patient stated he had chest pain he was weak it radiated to his arm and neck. He had had a prior heart attack and 2017 and at that time this felt similar however he did have jaw pain. Of him in the emergency department they found that his EKG was normal troponins are both normal Um and he did have some point tenderness in his left lower back on Um. At that point the ED provider are reviewed his labs and [place] [address] and a heart rate of 119. He performed a urinalysis which indicated that the patient had a urinary tract infection. Patient's review of systems are positive for having headache prior to admission Um blurred vision due to using tramadol for pain, he does have mild dental pain due to being in a transitional waiting period for to complete his left sided root canal, he did have palpitations when he had chest pain which is now resolved. He had shortness of breath he has been having a difficult time just ambulating and moving around. He had nausea but no abdominal pain he did endorse having soft stools. He states that he has numbing and tingling all over his body including legs and arms. Denies easy bruising or bleeding. Denies dysuria. Patient's saw his dentist today and was given oral Keflex for his pending root canal. It is suspected that he may be co-infected with both a dental infection as well a UTI. 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 Discharge Providers Provider Date of admission: 12/25/19 00:40 Discharge Date: 12/25/19 Primary care physician: ROSA Alfredo Discharge provider: Lacy Huynh MD Summary Hospital Course Discharge Diagnosis: 1. Gram Negative Sumeet Urinary Tract infection, acute, present on admission 2. Chest pain, acute, present on admission 3. Hyperlipidemia, chronic 4. Shortness of breath, exertional, acute, present on admission Hospital Course: 1. Bacterial infection, acute, present on admission -likely co-infection urinary tract infection and dental infection of the left jaw -urine cultures are growing GNB -patient was given one dose ceftriaxone 1 g IV and will be transitioned to oral Augmentin at home today. -he does not appear to be septic or to be a significant risk for bacteremia on current test results and vital signs. He will need his CBC repeated at his PCP followup next week. He would like to go home today. 2. Chest pain, acute, present on admission - 2 troponins are negative -patient has coronary artery disease -patient had a PCI in 2017 with stents placed -he takes lisinopril 2.5 mg p.o. every other day alternating with metoprolol tartrate 25 mg p.o. every other day -telemetry times 24 hours 3. Hyperlipidemia, chronic -takes atorvastatin 80 mg p.o. daily and will continue that 4. Shortness of breath, exertional, acute, present on admission -pending respiratory panel Status at Discharge Cognitive/behavioral status at discharge: oriented Functional status at discharge: independent ambulation Overall status at discharge: patient is back to baseline Time Spent with Patient Time spent: Less than 30 minutes Exam Vital Signs (past 8 hours): - 12/25/19 04:48 12/25/19 07:50 12/25/19 08:30 Temperature 98.6 F 98.9 F Pulse Rate 102 H 91 H Respiratory Rate 18 18 Blood Pressure 98/47 L 103/65 Pulse Oximetry 93 94 97 Oxygen Delivery Method Room Air Oxygen Flow Rate 0 Narrative Exam Narrative: He says that he feels a lot better. His dysuria is beginning to resolve. Oriented X 3. NAD Heart: RRR with out murmur Lungs: CTAB Ext: No ankle edema Abd: Soft, Not tender, BS +, No masses Objective Labs Result Diagrams: 12/25/19 05:25 12/25/19 05:25 Labs: Laboratory Results - last 24 hr 12/24/19 12/24/19 12/24/19 20:34 20:34 20:34 WBC 17.2 H RBC 4.98 Hgb 15.4 Hct 43.2 MCV 86.8 MCH 30.8 MCHC 35.5 RDW 13.4 Plt Count 175 Neut % (Auto) 86.5 H Lymph % (Auto) 4.7 L [place] % (Auto) 8.0 Eos % (Auto) 0.3 L Baso % (Auto) 0.5 Neut # (Auto) 99589 H Lymph # (Auto) 800 L [place] # (Auto) 1400 H Eos # (Auto) 100 Baso # (Auto) 100 PT 13.2 H INR 1.2 APTT 33 D-Dimer Sodium 135 L Potassium 4.1 Chloride 101 Carbon Dioxide 26 BUN 13 Creatinine 0.90 Estimated GFR > 60.0 BUN/Creatinine Ratio 14.4 Glucose 115 H Lactate Calcium 9.7 Total Bilirubin 1.1 AST 29 ALT 35 Alkaline Phosphatase 90 Total Creatine Kinase 71 CK-MB (CK-2) TNP CK-MB (CK-2) Rel Index TNP Troponin I < 0.012 Total Protein 7.7 Albumin 4.5 Globulin 3.2 Albumin/Globulin Ratio 1.4 Lipase 50 Urine Color Urine Appearance Urine pH Ur Specific [place] Urine Protein Urine Glucose (UA) Urine Ketones Urine Occult Blood Urine Nitrate Urine Bilirubin Urine Urobilinogen Ur Leukocyte Esterase Urine RBC Urine WBC Urine Bacteria Ur Culture Indicated? Chlamy pneumoniae PCR Adenovirus (PCR) B.parapertussis DNA PCR Coronavirus OC43 (PCR) Coronavirus HKU1 (PCR) Coronavirus 229E (PCR) Coronavirus NL63 (PCR) Human Metapneumovir PCR Influenza Type A (PCR) Influenza Type B (PCR) M. pneumoniae (PCR) Parainfluenza 1 (PCR) Parainfluenza 2 (PCR) Parainfluenza 3 (PCR) Parainfluenza 4 (PCR) RSV (PCR) Entero/Rhino (PCR) 12/24/19 12/24/19 12/24/19 20:34 20:34 22:40 WBC RBC Hgb Hct MCV MCH MCHC RDW Plt Count Neut % (Auto) Lymph % (Auto) [place] % (Auto) Eos % (Auto) Baso % (Auto) Neut # (Auto) Lymph # (Auto) [place] # (Auto) Eos # (Auto) Baso # (Auto) PT INR APTT D-Dimer < 200 Sodium Potassium Chloride Carbon Dioxide BUN Creatinine Estimated GFR BUN/Creatinine Ratio Glucose Lactate 1.3 Calcium Total Bilirubin AST ALT Alkaline Phosphatase Total Creatine Kinase CK-MB (CK-2) CK-MB (CK-2) Rel Index Troponin I < 0.012 Total Protein Albumin Globulin Albumin/Globulin Ratio Lipase Urine Color Urine Appearance Urine pH Ur Specific [place] Urine Protein Urine Glucose (UA) Urine Ketones Urine Occult Blood Urine Nitrate Urine Bilirubin Urine Urobilinogen Ur Leukocyte Esterase Urine RBC Urine WBC Urine Bacteria Ur Culture Indicated? Chlamy pneumoniae PCR Adenovirus (PCR) B.parapertussis DNA PCR Coronavirus OC43 (PCR) Coronavirus HKU1 (PCR) Coronavirus 229E (PCR) Coronavirus NL63 (PCR) Human Metapneumovir PCR Influenza Type A (PCR) Influenza Type B (PCR) M. pneumoniae (PCR) Parainfluenza 1 (PCR) Parainfluenza 2 (PCR) Parainfluenza 3 (PCR) Parainfluenza 4 (PCR) RSV (PCR) Entero/Rhino (PCR) 12/24/19 12/25/19 12/25/19 23:31 02:45 05:25 WBC 16.8 H RBC 4.50 Hgb 13.7 Hct 39.6 L MCV 88.0 MCH 30.5 MCHC 34.7 RDW 13.3 Plt Count 161 Neut % (Auto) 85.9 H Lymph % (Auto) 3.3 L [place] % (Auto) 10.6 Eos % (Auto) 0.1 L Baso % (Auto) 0.1 Neut # (Auto) 06153 H Lymph # (Auto) 500 L [place] # (Auto) 1800 H Eos # (Auto) 0 Baso # (Auto) 0 PT INR APTT D-Dimer Sodium Potassium Chloride Carbon Dioxide BUN Creatinine Estimated GFR BUN/Creatinine Ratio Glucose Lactate Calcium Total Bilirubin AST ALT Alkaline Phosphatase Total Creatine Kinase CK-MB (CK-2) CK-MB (CK-2) Rel Index Troponin I Total Protein Albumin Globulin Albumin/Globulin Ratio Lipase Urine Color Yellow Urine Appearance Slightly cloudy Urine pH 7.5 Ur Specific [place] 1.010 Urine Protein Trace H Urine Glucose (UA) Negative Urine Ketones Negative Urine Occult Blood Negative Urine Nitrate Positive Urine Bilirubin Negative Urine Urobilinogen 0.2 Ur Leukocyte Esterase 2+ H Urine RBC None seen Urine WBC 5-10/hpf H Urine Bacteria Many (>30) H Ur Culture Indicated? Specimen cultured Chlamy pneumoniae PCR Not detected Adenovirus (PCR) Not detected B.parapertussis DNA PCR Not detected Coronavirus OC43 (PCR) Not detected Coronavirus HKU1 (PCR) Not detected Coronavirus 229E (PCR) Not detected Coronavirus NL63 (PCR) Not detected Human Metapneumovir PCR Not detected Influenza Type A (PCR) Not detected Influenza Type B (PCR) Not detected M. pneumoniae (PCR) Not detected Parainfluenza 1 (PCR) Not detected Parainfluenza 2 (PCR) Not detected Parainfluenza 3 (PCR) Not detected Parainfluenza 4 (PCR) Not detected RSV (PCR) Not detected Entero/Rhino (PCR) Not detected 12/25/19 05:25 WBC RBC Hgb Hct MCV MCH MCHC RDW Plt Count Neut % (Auto) Lymph % (Auto) [place] % (Auto) Eos % (Auto) Baso % (Auto) Neut # (Auto) Lymph # (Auto) [place] # (Auto) Eos # (Auto) Baso # (Auto) PT INR APTT D-Dimer Sodium 135 L Potassium 4.2 Chloride 102 Carbon Dioxide 27 BUN 13 Creatinine 0.99 Estimated GFR > 60.0 BUN/Creatinine Ratio 13.1 Glucose 119 H Lactate Calcium 8.8 Total Bilirubin AST ALT Alkaline Phosphatase Total Creatine Kinase CK-MB (CK-2) CK-MB (CK-2) Rel Index Troponin I Total Protein Albumin Globulin Albumin/Globulin Ratio Lipase Urine Color Urine Appearance Urine pH Ur Specific [place] Urine Protein Urine Glucose (UA) Urine Ketones Urine Occult Blood Urine Nitrate Urine Bilirubin Urine Urobilinogen Ur Leukocyte Esterase Urine RBC Urine WBC Urine Bacteria Ur Culture Indicated? Chlamy pneumoniae PCR Adenovirus (PCR) B.parapertussis DNA PCR Coronavirus OC43 (PCR) Coronavirus HKU1 (PCR) Coronavirus 229E (PCR) Coronavirus NL63 (PCR) Human Metapneumovir PCR Influenza Type A (PCR) Influenza Type B (PCR) M. pneumoniae (PCR) Parainfluenza 1 (PCR) Parainfluenza 2 (PCR) Parainfluenza 3 (PCR) Parainfluenza 4 (PCR) RSV (PCR) Entero/Rhino (PCR) Discharge Plan Discharge Plan Patient Disposition: Home Discharge comment: Follow up with your primary care doctor - Vivi Nguyen in one week Discharge orders & Medications Prescriptions: New amoxicillin-pot clavulanate [Augmentin] 875-125 mg tablet 1 tab PO BID Qty: 14 RF: 0 Continued metoprolol succinate 25 mg tablet extended release 24 hr 25 mg PO .every other day RF: 0 atorvastatin 80 mg tablet 80 mg PO .every other day Qty: 90 RF: 1 lisinopril 2.5 mg tablet 2.5 mg PO .every other day Qty: 30 RF: 0 tramadol 50 mg tablet 50 mg PO BEDTIME PRN (Reason: pain) Qty: 30 RF: 0 hydrocodone-acetaminophen 5-325 mg tablet 1 tab PO DAILY PRN (Reason: pain) Qty: 30 RF: 0 Follow up/Referrals: Doe Nguyen ARNP [Primary Care Provider] - 1 Week (Dr. Nguyen RN will call patient back to schedule appt. ) Diet/Activity/Treatments Diet: Diet as Tolerated Visit Report/Discharge Packet Instructions: DI for Urinary Tract Infection (UTI), Amoxicillin/Clavulanate Potassium (By mouth) Discharge Data Primary Care Provider: Doe Nguyen Discharges patient from system. Discharge Date/Time: 12/25/19 11:30 Quality VTE Deep Vein Thrombosis/Pulmonary Embolism Present on Admission: No
--- NOTE | 2019-12-25 11:45 | PC.NURSE ---
Discharge Pt states only pain is JEONG left over from Nitro paste last night. Medicated with tylenol to help with pain. Denies any symptoms of UTI. D/c instructions provided to pt. Aware to contact PCP with any additional questions and to contact her to set up f/u apt for next week. Pt states he took all belongigns with him. Returned home medications from pharmacy to pt prior to d/c. Pt aware to get Rx for abx filled today and take them until gone. Aware to contact PCP or return to ED if symptoms worsen or do not improve. Left with RN escort to car with his son.
--- NOTE | 2020-01-05 15:13 | PC.NURSE ---
Late entry: NS stopped 12/24 [id number]
== END 2019-12-25 11:30 | disposition home or self-care (01) ==
LOC: ED 12-25 00:32 → AC 12-25 08:51
PROVIDERS: Admitting Provider Nurse Practitioner Family; Emergency Provider Emergency Medicine; PCP Nurse Practitioner Family; Referring Provider Emergency Medicine; Visit Provider Nurse Practitioner Family
DX: N39.0 Urinary tract infection, site not specified (principal); R07.9 Chest pain, unspecified; R68.84 Jaw pain; R53.1 Weakness; R06.02 Shortness of breath; I25.2 Old myocardial infarction; I25.10 Atherosclerotic heart disease of native coronary artery without angina pectoris; Z87.891 Personal history of nicotine dependence; E78.5 Hyperlipidemia, unspecified; B96.89 Other specified bacterial agents as the cause of diseases classified elsewhere
CPT/HCPCS: 36415; 71045; 71260; 74177; 80048; 80053; 81001; 81003; 82550; 83605; 83690; 84484; 85025; 85379; 85610; 85730; 87077; 87086; 87186; 87633; 87899; 93005; 96361; 96365; 96367; 96375; 99285; G0378; J1956; J2270; J2405; J7050; Q9967

== ENCOUNTER → 2019-12-31 08:12 | Outpatient (CLI) | payer OTHER, SELFPAY ==
[2019-12-25 01:38] VITALS: BMI 32.8
[2019-12-31 08:43] LABS: Add Manual Diff / Slide Review NO; Basophils Absolute Auto 0 /uL (0-100); Basophils Percent Auto 0.7 % (0-2); Eosinophils Absolute Auto 300 /uL (0-450); Hemoglobin 15.2 g/dL (13.5-17.5); Lymphocytes Absolute Auto 1200 /uL (1100-4500); Lymphocytes Percent Auto 17.8 % (25-40); Mean Corpuscular HGB Conc 34.6 % (30-36); Mean Corpuscular Hemoglobin 30.4 PG (26-34); Mean Corpuscular Volume 87.7 fL (80-100); Monocytes Absolute Auto 600 /uL (0-900); Monocytes Percent Auto 8.4 % (3-14); Neutrophils Absolute Auto 4600 /uL (1500-7000); Neutrophils Percent Auto 69.1 % (50-75); Platelet Count 246 X10^3/uL (150-400); Red Blood Cell Count 5.02 X10^6/uL (4.5-5.9); Red Cell Distribution Width 13.2 % (11.6-14.8); White Blood Cell Count 6.6 X10^3/uL (4.5-11.0)
[2019-12-31 08:56] LABS: Blood Urea Nitrogen 12 mg/dL (9-20); Calcium 9.6 mg/dL (8.4-10.2); Carbon Dioxide 30 mmol/L (22-32); Chloride 104 mmol/L (98-107); Estimated Glomerular Filt Rate > 60.0 mL/min (>60); Glucose 97 mg/dL (80-110); HEMOLYSIS < 15 (0-50); Potassium 4.5 mmol/L (3.4-5.1); Sodium 140 mmol/L (137-145)
== END ==
PROVIDERS: PCP Nurse Practitioner Family; Referring Provider Nurse Practitioner Family; Visit Provider Nurse Practitioner Family
DX: Z01.812 Encounter for preprocedural laboratory examination (principal); D72.829 Elevated white blood cell count, unspecified; N39.0 Urinary tract infection, site not specified
CPT/HCPCS: 36415; 80048; 85025

== ENCOUNTER → 2020-02-16 15:43 | Outpatient (CLI) | payer OTHER, SELFPAY ==
[2020-02-16 17:19] LABS: BUN Creatinine Ratio 14.4 (6-22); Blood Urea Nitrogen 15 mg/dL (9-20); Calcium 9.6 mg/dL (8.4-10.2); Carbon Dioxide 31 mmol/L (22-32); Chloride 101 mmol/L (98-107); Estimated Glomerular Filt Rate > 60.0 mL/min (>60); Glucose 96 mg/dL (80-110); HEMOLYSIS < 15 (0-50); Potassium 4.7 mmol/L (3.4-5.1); Sodium 140 mmol/L (137-145)
== END ==
PROVIDERS: PCP Nurse Practitioner Family; Referring Provider Internal Medicine Cardiovascular Disease; Visit Provider Internal Medicine Cardiovascular Disease
DX: I10 Essential (primary) hypertension (principal)
CPT/HCPCS: 36415; 80048

== ENCOUNTER → 2020-03-08 09:33 | Outpatient (CLI) | payer OTHER, SELFPAY ==
--- NOTE | 2020-03-08 09:35 | DI.US.S_ITS ---
PROCEDURE: US ABDOMEN COMPLETE INDICATIONS: abnormal ct TECHNIQUE: Real-time scanning was performed of the abdominal and retroperitoneal organs, with image documentation. COMPARISON: None. FINDINGS: Liver: Liver is normal in size and homogeneous in echotexture, hyperechoic consistent with fatty infiltration. Gallbladder: Multiple small stones are seen within the gallbladder lumen, in addition to gallbladder sludge. No associated evidence of acute cholecystitis or biliary obstruction. Biliary ducts: Intrahepatic bile ducts are non-dilated. Extrahepatic bile duct caliber measures 3.2 mm. Normal is 6-7 mm or less in diameter, or 10 mm or less post-cholecystectomy. Pancreas: Visualized portions of the pancreas are sonographically normal. Spleen: Spleen is moderately enlarged in size at 14.7 cm craniocaudad, and homogeneous in echotexture. Kidneys: Kidneys are normal in size and echotexture. Right kidney measures 11.0 cm long; left kidney measures 12.3 cm long. No hydronephrosis or nephrolithiasis. No solid masses. There is an exophytic 4 cm simple cyst lower left kidney. Aorta: Visualized aorta is normal in caliber at less than 3 cm. Iliacs: Proximal common iliac arteries are normal in caliber at less than 2.5 cm. IVC: Intrahepatic inferior vena cava is patent. Miscellaneous: No free abdominal fluid. IMPRESSION: Fatty infiltration throughout the liver, gallstones and mild sludge within the gallbladder lumen. Note is made of splenomegaly. No ascites is found. The bile ducts are not distended. Stones within the gallbladder lumen are the size that could transit into the cystic duct or common duct. Dictated by: Alfredo Viveros M.D. on 03/08/2020 at 12:25 Approved by: Alfredo Viveros M.D. on 03/08/2020 at 12:28
== END ==
PROVIDERS: PCP Nurse Practitioner Family; Referring Provider Specialist; Visit Provider Specialist
DX: R93.5 Abnormal findings on diagnostic imaging of other abdominal regions, including retroperitoneum (principal); K80.20 Calculus of gallbladder without cholecystitis without obstruction; K83.8 Other specified diseases of biliary tract; K76.0 Fatty (change of) liver, not elsewhere classified; R16.1 Splenomegaly, not elsewhere classified
CPT/HCPCS: 76700

== ENCOUNTER → 2020-05-09 10:44 | Outpatient (CLI) | payer OTHER, SELFPAY ==
--- NOTE | 2020-05-09 | DI.US.S_ITS ---
PROCEDURE: US SCROTUM INDICATIONS: SCROTAL PAIN TECHNIQUE: Real-time scanning was performed of the scrotum and testicles, with image documentation. Color and pulse Doppler interrogation was performed of both testicles. COMPARISON: [facility], , US SCROTUM, 04/14/2019, 9:28. FINDINGS: Right: Testicle is normal in size at 3.4 x 2.0 x 2.7 cm, and homogenous in echotexture. Epididymis is normal in overall size and morphology. No hydrocele or varicoceles. Overlying scrotal skin is normal in thickness. Left: Testicle is normal in size at 3.6 x 1.8 x 2.7 cm, and homogeneous in echotexture. Epididymis is normal in overall size and morphology. Trace hydrocele. No varicoceles. Overlying scrotal skin is normal in thickness. Doppler: Color and pulse Doppler demonstrate normal and symmetric arterial flow in both testicles. IMPRESSION: Trace left hydrocele; otherwise normal appearance of the testicles. Dictated by: Nicholas QUINTANA Interpreted: Shahriar Monreal MD on 05/09/2020 at 11:22 Approved by: Shahriar Monreal M.D. on 05/09/2020 at 11:42
== END ==
PROVIDERS: PCP Nurse Practitioner Family; Referring Provider Urology; Visit Provider Urology
DX: N50.82 Scrotal pain (principal)
CPT/HCPCS: 76870